=== PATIENT | female | born 1955 | race Caucasian/White ===

== ENCOUNTER 2020-02-17 14:41 | Outpatient (CLI) | payer BC, SELFPAY ==
--- NOTE | ~2020-02-17 | MM_ITS ---
EXAMINATION: MM screening kym BI w mary HISTORY: Screening TECHNIQUE: Craniocaudal and mediolateral oblique 3-D tomosynthesis images were obtained and synthetic 2-D images were generated. CAD analysis was submitted and interpreted. COMPARISON: Comparison to multiple prior studies sequentially, with oldest reviewed study dated 12/23. BREAST PARENCHYMAL COMPOSITION: There are scattered areas of fibroglandular density. FINDINGS: There is no evidence of suspicious mass, calcification, or architectural distortion to sugg est malignancy in either breast. There has been no suspicious interval change. IMPRESSION: 1. No mammographic evidence of malignancy. 2. Recommend routine screening mammography in one year. BI-RADS Category 1: Negative Reviewed, dictated and finalized at location D. TH AND PHYSICAL EDUCATION PROFESSOR
== END 2020-02-17 14:42 | disposition home or self-care (01) ==
LOC: ANHIMG 14:44
PROVIDERS: PCP Family Medicine Adolescent Medicine; Visit Provider Obstetrics & Gynecology
DX: Z12.31 Encounter for screening mammogram for malignant neoplasm of breast (principal)
CPT/HCPCS: 77063; 77067

== ENCOUNTER → 2020-02-17 15:20 | Outpatient (CLI) | payer BC, SELFPAY ==
--- NOTE | ~2020-02-17 | XR_ITS ---
EXAMINATION: XR knee RT min 4V DATE: 02/17/2020 16:02 INDICATION: Right knee osteoarthritis. TECHNIQUE: 4 views of right knee were obtained. COMPARISON: None. FINDINGS: There is varus angulation at the knee. No fracture. There is severe osteoarthritis of media l compartment, moderate osteoarthritis of patellofemoral compartment, and mild osteoarthritis of late ral compartment. There is a small knee joint effusion. IMPRESSION: 1. Severe right knee osteoarthritis. 2. Small right knee joint effusion. Reviewed, dictated and finalized at location A. NURSE
--- NOTE | ~2020-02-17 | XR_ITS ---
EXAMINATION: XR lumbar spine 2-3V DATE: 02/17/2020 16:02 INDICATION: Left-sided sciatica. TECHNIQUE: 3 views of lumbar spine were obtained. COMPARISON: CT abdomen and pelvis 10/14/2017, chest 2 views 10/19/2016 FINDINGS: S1 is a transitional segment. There is 8 degrees levocurvature of thoracolumbar spine. Ther e is 3 mm retrolisthesis of L2 on L3. Vertebral body heights are normal. There is mildly decreased di sc height at L1-L2, L2-L3, and L3-L4 and severely decreased disc height at L5-S1. There is severe fac et joint osteoarthritis in lower lumbar spine. Surgical clips in the right upper quadrant are likely from cholecystectomy. IMPRESSION: 1. Severe lumbar spondylosis. Reviewed, dictated and finalized at location A. TING DESIGNER
--- NOTE | ~2020-02-17 | XR_ITS ---
EXAMINATION: XR knee LT min 4V DATE: 02/17/2020 16:02 INDICATION: Left knee osteoarthritis. TECHNIQUE: 4 views of left knee were obtained. COMPARISON: Left knee radiographs 10/19/2016 FINDINGS: Bone alignment is normal. No fracture. There is severe osteoarthritis of lateral compartmen t, moderate osteoarthritis of patellofemoral compartment, and mild osteoarthritis of medial compartme nt. There is a small knee joint effusion. IMPRESSION: 1. Severe left knee osteoarthritis. 2. Small left knee joint effusion. Reviewed, dictated and finalized at location A. CREAM SERVER
== END ==
PROVIDERS: Visit Provider Family Medicine Adolescent Medicine
DX: M47.816 Spondylosis without myelopathy or radiculopathy, lumbar region (principal); M54.32 Sciatica, left side; M17.0 Bilateral primary osteoarthritis of knee; M25.462 Effusion, left knee; M25.461 Effusion, right knee
CPT/HCPCS: 72100; 73564

== ENCOUNTER 2020-03-07 10:01 | Outpatient (RCR) | payer BC, SELFPAY ==
--- NOTE | 2020-03-07 11:02 | PTOPEVAL ---
Thank you for referring Molly Calvin to [facility].? The patient is scheduled to be seen for therapy? __2__x/week for 12 visits. Please review, sign, date and return this plan of care SHANTA. I agree with and certify that the following plan of care is medically necessary. Referring Physician Date Admitting Provider: Attending Provider: Castillo Celaya MD Referring Provider: *PT Outpatient Evaluation Start: 03/07/20 10:02 Freq: Status: Active Protocol: Document 03/07/20 10:02 FANTA (Rec: 03/07/20 11:00 FANTA [id number]) Therapy Assessment Status Assessment Status Assessment Status Evaluation Evaluation Information Problem Diagnosis bilateral knee pain Onset 07/15/19 Subjective Information Pt. reports that she was Query Text:As Reported By Patient/ walking more frequently around Family July. she states that with the walking came an increase in pain. She describes pain on the front and outside of the left knee, as well as the front of the right knee. She reports that she can only stand for about 15 minutes before increased knee and leg pain. she reports that her goal is to improve her knee mobility and decrease her knee pain. Prior Level of Function Activity Level (Last 3 Months) Occupation retired Hand Dominance Left Activity of Daily Living Ability Independent Indoor/Home Mobility Independent Community Mobility Independent Stairs Ability Independent Functional Cognition (Planning, Shopping Independent , Taking Medications) Cooking Yes Cleaning Yes Laundry Yes Shopping Yes Driving Yes Pain Assessment Timing of Pain Assessment Timing of Pain Assessment Pre-Treatment Pain Scale Pain Scale Used Numeric (1 - 10) Self Report Pain Assessment Bilateral Knee(s) Reported Pain Level 1 Lowest Pain Intensity 1 Greatest Pain Intensity 7 Pain Aggravating Factors Stair Climbing,Walking,Weight Bearing/Standing Pain Score Pain Score 1: Self Report Interventions Used Interventions Used By Clinicians Activity or ADL's,Electrical Stimulation,Exercise,Heat Lower Extremity Range of Motion
== END 2020-04-13 14:57 | disposition home or self-care (01) ==
LOC: CHSPT 10:01
PROVIDERS: Visit Provider Orthopaedic Surgery
DX: M17.0 Bilateral primary osteoarthritis of knee (principal)
CPT/HCPCS: 97014; 97110; 97161; G0283

== ENCOUNTER 2020-04-18 13:51 | Outpatient (CLI) | payer BC, SELFPAY ==
[2020-04-18 14:29] LABS: Hematocrit 40.9 % (37.0-47.0); Hemoglobin 13.9 g/dL (12.0-15.0)
[2020-04-18 14:44] LABS: Albumin Level 3.9 g/dL (3.5-5.1); Estimated Glomerular Filt Rate > 60; Glucose 118 mg/dL (65-105)
[2020-04-18 14:45] LABS: Hemoglobin A1C 5.3 % (<5.7)
[2020-04-18 14:50] LABS: Urine Cotinine NEGATIVE
--- NOTE | 2020-04-18 15:12 | ECG_ITS ---
Measurements Intervals [place] Rate: 63 P: 63 MO: 145 QRS: 2 QRSD: 82 T: 7 QT: 408 QTc: 418 Interpretive Statements SINUS RHYTHM WITH SINUS ARRHYTHMIA NONSPECIFIC ST & T-WAVE ABNORMALITY- ANTEROLAT/INF LEADS BASELINE ARTIFACT- I, III, V4 BORDERLINE ECG Electronically Signed On 04-18-2020 15:51:43 WEIGHT TESTER by David Rios D.O.
== END 2020-04-18 13:52 | disposition home or self-care (01) ==
PROVIDERS: PCP Family Medicine Adolescent Medicine; Visit Provider Orthopaedic Surgery
DX: Z01.818 Encounter for other preprocedural examination (principal); M17.12 Unilateral primary osteoarthritis, left knee
CPT/HCPCS: 80307; 82040; 82565; 82947; 83036; 85014; 85018; 93005

== ENCOUNTER 2020-06-10 11:56 | Outpatient (CLI) | payer BC, SELFPAY ==
[2020-06-10 13:04] LABS: Basophils Absolute Auto 0.1 K/mm3 (0.0-0.1); Basophils Percent Auto 0.9 % (0.2-1.2); Eosinophils Absolute Auto 0.2 K/mm3 (0-0.3); Hemoglobin 13.8 g/dL (12.0-15.0); Immature Granulocyte Absolute 0.01 K/mm3 (0.00-0.031); Immature Granulocyte Percent A 0.1 % (0-0.5); Lymphocytes Absolute Auto 2.33 K/mm3 (0.9-3.2); Lymphocytes Percent Auto 31.3 % (18.3-44.2); Mean Corpuscular HGB Conc 34.5 g/dl (32-36); Mean Corpuscular Hemoglobin 31.3 pg (26-34); Mean Corpuscular Volume 90.7 fl (80-100); Mean Platelet Volume 9.5 fl (7.4-10.4); Monocytes Absolute Auto 0.7 K/mm3 (0.1-0.6); Monocytes Percent Auto 9.8 % (2.6-8.5); Neutrophils Absolute Auto 4.2 K/mm3 (1.3-6.7); Neutrophils Percent Auto 55.9 % (45.5-73.1); Platelet Count Result 219 k/mm3 (150-375); Red Blood Count 4.41 M/mm3 (4.2-5.4); Red Cell Distribution Width 12.2 % (11.5-14.5); White Blood Count 7.5 K/mm3 (4.5-10.0)
== END 2020-06-10 11:57 | disposition home or self-care (01) ==
LOC: ANHSURGERY 12:02
PROVIDERS: PCP Family Medicine Adolescent Medicine; Visit Provider Orthopaedic Surgery
DX: M17.12 Unilateral primary osteoarthritis, left knee (principal); Z01.818 Encounter for other preprocedural examination
CPT/HCPCS: 36415; 85025; 86850; 86900; 86901; 87081

== ENCOUNTER → 2020-06-11 01:42 | Outpatient (CLI) | payer BC, SELFPAY ==
[2020-06-11 19:42] LABS: SARS-CoV-2 RNA PCR Negative
== END ==
PROVIDERS: PCP Family Medicine Adolescent Medicine; Visit Provider Orthopaedic Surgery
DX: Z01.812 Encounter for preprocedural laboratory examination (principal); Z20.822 Contact with and (suspected) exposure to COVID-19
CPT/HCPCS: C9803; U0003; U0005

== ENCOUNTER 2020-06-14 01:38 | Day surgery (SDC) | payer BC, SELFPAY ==
[2020-06-10 12:07] VITALS: BMI 32.1
[2020-06-10 12:45] VITALS: BP 145/72; PULSE 68; RESP 16; TEMP 36.6; O2SAT 98
[2020-06-14] VITALS (15 sets, daily range): BP systolic 124–151; BP diastolic 55–78; PULSE 73–99; RESP 14–20; TEMP 36.3–36.8; O2SAT 94–100
--- NOTE | ~2020-06-14 | XR_ITS ---
EXAMINATION: XR knee LT 2V DATE: 06/14/2020 09:46 INDICATION: Total left knee arthroplasty. Postop. TECHNIQUE: 2 views of left knee were obtained. COMPARISON: Left knee radiographs 02/17/20 FINDINGS: There is a total left knee arthroplasty in near-anatomic alignment with patellar resurfacin g. No fracture. There is gas in the knee joint and soft tissues, consistent with recent surgery. IMPRESSION: 1. Total left knee arthroplasty in near-anatomic alignment. Reviewed, dictated and finalized at location A. OT KNITTER
[2020-06-14] MEDS: ACETAMINOPHEN 500 MG TABLET 1000 MG PO (06:34)
[2020-06-14] MEDS: LACTATED RINGERS 1,000 ML 30 ML IV CONT ×2 (06:40→09:32)
[2020-06-14] MEDS: TRANEXAMIC ACID 1,000MG/ISO100 1,000 MG/100 ML BAG 200 MG IVPB (06:44)
--- NOTE | 2020-06-14 07:03 | WPDANESEPPF ---
Anes - Initial Pre Proc Eval Procedure: Operation Date: 06/14/20 07:30 Proposed Procedures p Left Total Knee Arthroplasty - Castillo Celaya MD Date/Time: 06/14/20 07:03 Surgeon: Castillo Celaya MD Pre Op Diagnosis: Primary OA left Knee Patient Data Age: 65 Gender: F Height: 1.61 m Weight: 83.6 kg Last Vital Signs Temp 36.6 C 06/10/20 12:45 Pulse 68 06/10/20 12:45 Resp 16 06/10/20 12:45 BP 145/72 H 06/10/20 12:45 Pulse Ox 98 06/10/20 12:45 Allergies Allergy/AdvReac Type Severity Reaction Status Date / Time caffeine AdvReac Unknown PANIC Verified 06/14/20 06:21 ATTACKS hydrocodone AdvReac Unknown Nausea Verified 06/14/20 06:21 Home Medications Medication Instructions Recorded Confirmed Type tramadol 50 mg tablet 50 mg PO Q6H PRN 01/26/20 06/14/20 History alprazolam 0.25 mg tablet 0.25 mg PO PRN PRN 02/11/20 06/14/20 History simvastatin 40 mg tablet 40 mg PO HS 02/11/20 06/14/20 History nitrofurantoin macrocrystal 50 mg 50 mg PO PRN PRN 06/08/20 06/10/20 History capsule risedronate 150 mg tablet 150 mg PO MONTHLY 06/08/20 06/14/20 History Lactobacillus acidophilus 10,000 mmu cells PO BID 06/10/20 06/14/20 History [Probiotic] ascorbic acid (vitamin C) [Vitamin 1 g PO DAILY 06/10/20 06/14/20 History C] calcium carbonate [Calcium 600] 600 mg PO BID 06/10/20 06/14/20 History calcium carbonate [Tums] 200 mg PO PRN PRN 06/10/20 06/14/20 History cholecalciferol (vitamin D3) 125 mcg PO DAILY 06/10/20 06/14/20 History coQ10 (ubiquinol) 100 mg PO DAILY 06/10/20 06/14/20 History cranberry 1,000 mg PO DAILY 06/10/20 06/14/20 History docusate sodium [Stool Softener] 100 mg PO DAILY 06/10/20 06/14/20 History famotidine 20 mg PO DAILY 06/10/20 06/14/20 History garlic extract 500 mg PO BID 06/10/20 06/14/20 History multivitamin,bu-[id number]-mgqpcpnv 1 tablet PO DAILY 06/10/20 06/14/20 History [Complete Multivitamin] naproxen sodium 220 mg PO BID 06/10/20 06/14/20 History omega-3 fatty acids-vitamin E 1 cap PO DAILY 06/10/20 06/14/20 History [Fish Oil] Patient hx anesthesia problems: none Family hx anesthesia problems: none [facility] Past Medical History Medical History (Updated 06/14/20 @ 07:06 by Kristopher Villafuerte MD) Bilateral knee pain Bunion of left foot (~2002) Bunion, left foot (~1995) Bunion, left foot (~1999) Bunion, left foot (~2005) Chronic GERD Hyperlipidemia Obesity Osteoarthritis Primary osteoarthritis of knees, bilateral Surgical History Surgical History H/O: hysterectomy (~1994) History of carpal tunnel release (~2018) History of cholecystectomy (~2017) History of left knee surgery (~2016) History of right knee surgery (~2012) Family History Family History Father Diabetes mellitus Heart disease Mother Heart disease Other Family history of cardiovascular disease Family history of kidney disease Family history of malignant neoplasm Hypertension Social History Social History Smoking status: Never smoker Additional smoking assessment comments: DENIES ANY FORM OF TOBACCO USE Alcohol intake: never Living arrangements: with family Spiritual care concerns: No Anes - Eval Final PreProcedure Day of Procedure 06/14/20 07:03 Patient weight: obese Heart: regular rate and rhythm Lungs: clear to auscultation and normal air movement Airway: Mallampati scale class II Neurological: alert and oriented Last oral intake: >/= 8 hours ASA classification: II Emergent: no Anesthetic plan: proceed Anesthesia type and monitoring: general LMA Informed Consent: The patient's anesthetic plan and its attendant risks and benefits were discussed with the patient/family/POA. Questions were solicited and answers provided to the satisfaction of the patient/family/POA.
--- NOTE | 2020-06-14 07:07 | WPDANESPNB ---
Anes - Peripheral Nerve Block Date/Time: 06/14/20 07:07 I have discussed with the patient/family/POA the placement of a peripheral nerve block for post-operative pain management, including associated risks, benefits, complications, and side effects. Alternative methods of post-operative analgesia were detailed. Questions were solicited and answers provided to the satisfaction of the patient/family/POA. Time-Out: A pre-procedural Time-Out was completed immediately before starting the procedure and confirmed: Patient Identification, Site, Procedure, Patient Position and the Availability of Requisite Equipment. Clinical Indications: Acute post-operative pain management requested by the operative surgeon. Nerve Block Insertion Note Anes-nerve block: adductor canal left Patient position: supine Skin prep: chlorhexidine Needle: 22 gauge, stimulating, insulated echogenic needle. Needle length: 80 mm Technique: ultrasound Technique comment: in plane Injectate: bupivacaine 0.5% with epi 5 mcg/ml (30cc) Observations: tolerated well Complications: none Procedure start time:: 720 Procedure end time:: 725
--- NOTE | 2020-06-14 07:18 | WPDHPUPDATE1 ---
History and Physical Update Update Date/Time: 06/14/20 07:18 History and Physical has been reviewed, including an updated exam of the patient. There are NO changes in the patient's condition. Risks, benefits, and alternatives have been discussed and questions answered. Patient agrees to proceed with procedure.
[2020-06-14] MEDS: ceFAZolin 2 GM/D5W 50 ML 2 GM/50 ML BAG IVPB (07:28)
--- NOTE | 2020-06-14 09:25 | PM.PROC ---
Procedure Note - Detailed Date of procedure: 06/14/20 Pre-op diagnosis: Primary OA left Knee Post-op diagnosis: same Procedure performed: Total knee arthroplasty, left Description of procedure: Bone quality was fair. Minimal lateral release required. 9mm distal cut due to contracture and remaining cartilage on the medial femur. 3 degree rotation matched the AP axis and gap balancing. PCL minimally released off the tibia. Implants: Estephania Triathlon size 4 cemented femur, size 4 cemented low-profile tibia, 11 mm CR polyethylene insert, 32 mm asymmetric all poly patellar component. Anesthesia: GETA and regional (subsartorial nerve block) Surgeon: Castillo Celaya MD Mandate Retail Service Merchandiser: Chichi Blackmon PA-C Estimated blood loss (mL): 200 Tourniquet time (min): 16 Drains: No Complications: None Condition: stable Disposition: PACU Findings: Physician pediatric medical assistant, Chichi Blackmon PA-C, required for surgery; including patient positioning, draping, tissue retraction, maintaining instrument position, cement removal, wound closure, and dressing placement. OPERATIVE DETAILS: The patient was given a nerve block preoperatively, and then brought to the operating room. A general anesthetic was administered. The leg was prepped and draped in the usual sterile fashion. The limb was elevated and the tourniquet inflated to 300 mmHg during initial exposure, and cementation. A longitudinal incision was created along the medial border of the patella and patellar tendon, and a high mid-vastus approach to the knee was performed. No medial release was taken. The knee was then flexed. The osteophytes were carefully removed. The intramedullary guide was placed in the femoral canal. The distal femoral resection was then taken with the oscillating saw. The collateral ligaments were carefully protected. The tibia was carefully exposed. The jig was applied, and the proximal tibia was resected according to preoperative plan. The pain really anesthetic mixture was injected into the periarticular tissues. The knee was balanced in extension, and appropriate releases were taken where needed. The anterior cruciate ligament and meniscal remnants were removed. The posterior cruciate ligament was preserved. The patella was measured. Patellar resection was carried out with the oscillating saw. The lug holes drilled. The femur was sized and rotation assessed using a combination of gap balancing, posterior referencing, and the AP axis. The 4 in 1 cutting block was used to finish the femoral cuts after equal gaps were assured. The lug holes were drilled. The osteophytes were carefully removed from the back of the knee. The knee was copiously irrigated with antibiotic solution periodically throughout the procedure. The spacer block was used to confirm equal flexion and extension gaps. Further releases were performed as needed. The tibia was sized and broached. The bony surfaces were prepared for cementing with pulsatile lavage. The real tibial component and femoral components were cemented into position. Excess cement was carefully removed. The polyethylene insert was placed. The patella component was subsequently cemented. Patellar tracking was carefully assessed. No additional releases were required. The wound was closed with #1 Vicryl suture, #2 Quill suture, 1-Xgwluj-iuk suture, and 2-0 Strata-fix suture followed by Steri-Strips. A sterile bulky dressing was applied. Meticulous hemostasis was maintained throughout the procedure. There were no complications. The patient was extubated and brought to the recovery room in stable condition after the application of sterile dressing with Johann bandage.
[2020-06-14] MEDS: fentaNYL CITRATE INJ (*CRX) 100 MCG/2 ML VIAL 25 MCG IV PUSH ×4 (10:04→10:30)
--- NOTE | 2020-06-14 11:39 | ADMGEN ---
This patient, Molly Calvin, was admitted to 2 Medical Room 259-01. Patient/family oriented to hospital policies and general routines including ID bracelet, bed and alarms, visiting hours, pain management, procedures, bathroom and other care routines, personal items, smoking policy, room service/diet, and visiting hours. Information on how to activate the Rapid Response Team has been discussed. Patient/Family are encouraged to report perceived risks to care and to ask questions if they do not understand what they are told or what they should do.
[2020-06-14] MEDS: oxyCODONE HCL (*CRX) 5 MG TAB IR PO (12:13)
[2020-06-14] MEDS: traMADol HCL (*CRX) 50 MG TABLET PO ×2 (14:37→21:14)
[2020-06-14] MEDS: ALPRAZolam (*CRX) 0.25 MG TABLET PO (14:37)
[2020-06-14] MEDS: NAPROXEN SODIUM 220 MG TABLET PO (16:27)
[2020-06-14] MEDS: CALCIUM CARBONATE (OSCAL) 500 MG TABLET PO (16:28)
[2020-06-14] MEDS: DOCUSATE SODIUM 100 MG CAPSULE PO (16:28)
[2020-06-14] MEDS: ACIDOPHILUS/BULGARICUS CHEWABLE TABLET 1 TABLET PO (16:28)
[2020-06-14] MEDS: ASPIRIN 81 MG ENTERIC TABLET PO (16:28)
[2020-06-14] MEDS: SIMVASTATIN 20 MG TABLET 40 MG PO (21:08)
[2020-06-14] MEDS: SENNOSIDES 8.6 MG TABLET 17.2 MG PO (21:08)
[2020-06-15 00:37] VITALS: BP 144/61; PULSE 83; RESP 20; TEMP 36.3; O2SAT 98
[2020-06-15] MEDS: oxyCODONE HCL (*CRX) 5 MG TAB IR PO ×3 (00:56→08:40)
[2020-06-15] MEDS: traMADol HCL (*CRX) 50 MG TABLET PO ×2 (04:03→11:21)
[2020-06-15 04:40] VITALS: BP 144/64; PULSE 84; RESP 20; TEMP 36.1; O2SAT 97
[2020-06-15 05:33] LABS: Basophils Percent Auto 0.4 % (0.2-1.2); Eosinophils Absolute Auto 0.1 K/mm3 (0-0.3); Eosinophils Percent Auto 0.8 % (0-4.4); Hematocrit 32.3 % (37.0-47.0); Hemoglobin 11.1 g/dL (12.0-15.0); Immature Granulocyte Absolute 0.03 K/mm3 (0.00-0.031); Immature Granulocyte Percent A 0.3 % (0-0.5); Lymphocytes Absolute Auto 1.37 K/mm3 (0.9-3.2); Lymphocytes Percent Auto 13.7 % (18.3-44.2); Mean Corpuscular HGB Conc 34.4 g/dl (32-36); Mean Corpuscular Hemoglobin 31.4 pg (26-34); Mean Corpuscular Volume 91.2 fl (80-100); Mean Platelet Volume 9.9 fl (7.4-10.4); Monocytes Absolute Auto 1.1 K/mm3 (0.1-0.6); Monocytes Percent Auto 10.6 % (2.6-8.5); Neutrophils Absolute Auto 7.4 K/mm3 (1.3-6.7); Neutrophils Percent Auto 74.2 % (45.5-73.1); Platelet Count Result 178 k/mm3 (150-375); Red Blood Count 3.54 M/mm3 (4.2-5.4); Red Cell Distribution Width 12.3 % (11.5-14.5)
[2020-06-15 05:49] LABS: Anion Gap 4 mmol/L (8-16); Blood Urea Nitrogen 15 mg/dL (7-17); Carbon Dioxide 29 mmol/L (22-30); Chloride 104 mmol/L (98-107); Estimated CRCL calculation 83 ml/min; Estimated Glomerular Filt Rate > 60; Glucose 123 mg/dL (65-105); Potassium 3.5 mmol/L (3.4-5.0); Sodium 137 mmol/L (137-145)
[2020-06-15 08:40] VITALS: BP 151/67; PULSE 75; RESP 16; TEMP 36.8; O2SAT 96
[2020-06-15] MEDS: THERAPEUTIC MULTIVITAMINS/MINERALS TAB (*BKC) 1 TABLET PO (08:41)
[2020-06-15] MEDS: OMEGA 3 POLYUNSAT FATTY ACIDS 1 GM CAP PO (08:41)
[2020-06-15] MEDS: NAPROXEN SODIUM 220 MG TABLET PO (08:41)
[2020-06-15] MEDS: CHOLECALCIFEROL 1,000 UNITS TABLET 5000 UNITS PO (08:41)
[2020-06-15] MEDS: DOCUSATE SODIUM 100 MG CAPSULE PO (08:41)
[2020-06-15] MEDS: ASCORBIC ACID 500 MG TABLET 1000 MG PO (08:41)
[2020-06-15] MEDS: ACIDOPHILUS/BULGARICUS CHEWABLE TABLET 1 TABLET PO (08:41)
[2020-06-15] MEDS: FAMOTIDINE 20 MG TABLET PO (08:41)
[2020-06-15] MEDS: ALPRAZolam (*CRX) 0.25 MG TABLET PO (08:41)
[2020-06-15] MEDS: ASPIRIN 81 MG ENTERIC TABLET PO (08:42)
[2020-06-15] MEDS: CALCIUM CARBONATE (OSCAL) 500 MG TABLET PO (08:42)
--- NOTE | 2020-06-15 11:56 | PM.DS ---
DS: Admitting Diagnosis Admitting Diagnosis Admitting Diagnosis: OA knee Left DS: Discharge Diagnosis Discharge Diagnosis (1) Status post left knee replacement: Code(s): Z96.652 - Presence of left artificial knee joint Status: Acute Assessment and Plan: Patient is postop day 1 left total knee arthroplasty. Patient is progressing well. She has had PT/OT. Pain is controlled with oral pain medications. I reviewed post operative expectations and exercises. Reviewed wound care postoperatively. Patient shows good understanding. Follow up appointments already made. DS: Summary Hospital Course Reason for hospitalization: Left Total knee arthroplasty Hospital Course: Patient tolerated procedure well. Has had initial PT/OT. No complications. Pain well managed with oral medications. Status at Discharge Functional status at discharge: uses cane/walker Overall status at discharge: patient is progressing back to baseline Time Spent with Patient Time attestation: Total time spent providing and/or coordinating discharge services: Exam Narrative: Exam Narrative: Normal weight Female. Resting comfortably in bed. No acute distress. A&O x3. Wearing compression socks bilaterally. Dressing intact with no drainage. Moderate swelling. No ecchymosis. No erythema. No hematoma. Good early range of motion. Calf nontender. Neurologic status intact. No varicosities. Distal pulses palpable. DS: Data Data Completed and Pending Labs on day of discharge: Labs from last 24 hours 06/15/20 06/15/20 05:18 05:18 WBC 10.0 RBC 3.54 L Hgb 11.1 L Hct 32.3 L MCV 91.2 MCH 31.4 MCHC 34.4 RDW 12.3 Plt Count 178 MPV 9.9 Immature Gran % (Auto) 0.3 Neut % (Auto) 74.2 H Lymph % (Auto) 13.7 L [place] % (Auto) 10.6 H Eos % (Auto) 0.8 Baso % (Auto) 0.4 Lymph # (Auto) 1.37 [place] # (Auto) 1.1 H Eos # (Auto) 0.1 Baso # (Auto) 0.0 Abs Immat Gran (auto) 0.03 Absolute Neuts (auto) 7.4 H Absolute Nucleated RBC 0.0 Nucleated RBC % 0.0 Sodium 137 Potassium 3.5 Chloride 104 Carbon Dioxide 29 Anion Gap 4 L BUN 15 Creatinine 0.60 L Estim Creat Clear Calc 83 Estimated GFR > 60 Glucose 123 H Calcium 8.0 L Discharge Plan Discharge Patient Disposition: Home, Self-Care Discharge Instructions: See instruction sheet Patient Instructions: Pain Management (DC), Joint Replacement Surgery (DC), Knee Replacement (DC) Follow-up/Referrals: Chichi Blackmon PA [Physician Accounts Adjustable Clerk] - Discharge Medications: New aspirin 81 mg Tablet,Delayed Release (Dr/Ec) 81 mg PO BID Qty: 28 RF: 0 oxycodone-acetaminophen 5-325 mg tablet 1 - 2 tablet PO Q4-6H MDD 6 PRN (Reason: pain) Qty: 30 RF: 0 Continued simvastatin 40 mg tablet 40 mg PO HS RF: 0 alprazolam 0.25 mg tablet 0.25 mg PO PRN PRN (Reason: Anxiety) RF: 0 nitrofurantoin macrocrystal 50 mg capsule 50 mg PO PRN PRN (Reason: UTIS) RF: 0 risedronate 150 mg tablet 150 mg PO MONTHLY RF: 0 tramadol 50 mg tablet 50 mg PO Q6H PRN (Reason: Pain) RF: 0 naproxen sodium 220 mg Capsule 220 mg PO BID RF: 0 famotidine 20 mg Tablet 20 mg PO DAILY RF: 0 calcium carbonate [Tums] 200 mg calcium (500 mg) Tablet,Chewable 200 mg PO PRN PRN (Reason: Heartburn) RF: 0 docusate sodium [Stool Softener] 100 mg Capsule 100 mg PO DAILY RF: 0 Probiotic 10 billion cell Capsule 10,000 mmu cells PO BID RF: 0 garlic extract 500 mg Capsule 500 mg PO BID RF: 0 ascorbic acid (vitamin C) [Vitamin C] 1,000 mg Tablet 1 g PO DAILY RF: 0 calcium carbonate [Calcium 600] 600 mg calcium (1,500 mg) Tablet 600 mg PO BID RF: 0 cranberry 1,000 mg Capsule 1,000 mg PO DAILY RF: 0 multivitamin,uw-wdqw-bmbkvcrs Tablet 1 tablet PO DAILY RF: 0 omega-3 fatty acids-vitamin E 1,000 mg Capsule 1 cap PO DAILY RF: 0 coQ10 (ubiquinol) 100 mg Capsule 100 mg PO
--- NOTE | 2020-06-15 12:38 | WPDANESPN ---
Anes - Prog Note Post-Op Date/Time: 06/15/20 12:38 Cardiovascular status: normal Respiratory status: normal Airway patency: baseline Mental status: baseline Post-Op hydration status: normal Vital Signs: Last Vital Signs Temp 36.8 C 06/15/20 08:40 Pulse 75 06/15/20 08:40 Resp 16 06/15/20 08:40 BP 151/67 H 06/15/20 08:40 Pulse Ox 96 06/15/20 08:40 Pain Score (VAS): 4 I/O: Intake & Output 06/14/20 06/15/20 06/15/20 23:59 07:59 15:59 Intake Total 590 440 Output Total 1300 1000 Balance -710 -560 Laboratory Tests 06/15/20 05:18 06/15/20 05:18 06/15/20 06/15/20 05:18 05:18 WBC 10.0 RBC 3.54 L Hgb 11.1 L Hct 32.3 L MCV 91.2 MCH 31.4 MCHC 34.4 RDW 12.3 Plt Count 178 MPV 9.9 Immature Gran % (Auto) 0.3 Neut % (Auto) 74.2 H Lymph % (Auto) 13.7 L [place] % (Auto) 10.6 H Eos % (Auto) 0.8 Baso % (Auto) 0.4 Lymph # (Auto) 1.37 [place] # (Auto) 1.1 H Eos # (Auto) 0.1 Baso # (Auto) 0.0 Abs Immat Gran (auto) 0.03 Absolute Neuts (auto) 7.4 H Absolute Nucleated RBC 0.0 Nucleated RBC % 0.0 Sodium 137 Potassium 3.5 Chloride 104 Carbon Dioxide 29 Anion Gap 4 L BUN 15 Creatinine 0.60 L Estim Creat Clear Calc 83 Estimated GFR > 60 Glucose 123 H Calcium 8.0 L Post-procedural complaints: none Patient Feedback: Patient satisfied with anesthetic care.
== END 2020-06-15 14:30 | disposition home or self-care (01) ==
LOC: ANHSURGERY 06:00 → ANH2MED 10:51
PROVIDERS: PCP Family Medicine Adolescent Medicine; Visit Provider Orthopaedic Surgery
PROC: (CPT 27447; principal; 2020-06-14 07:30)
DX: M17.12 Unilateral primary osteoarthritis, left knee (principal); G89.18 Other acute postprocedural pain; E78.5 Hyperlipidemia, unspecified; K21.9 Gastro-esophageal reflux disease without esophagitis; E66.9 Obesity, unspecified; Z68.32 Body mass index [BMI] 32.0-32.9, adult
CPT/HCPCS: 27447; 64447; 36415; 73560; 80048; 85025; 97110; 97116; 97161; 97165; 97530; 97535; A9270; C1713; C1776; J0131; J0171; J0690; J1100; J1885; J2250; J2405; J2704; J2795; J3010; J7120

== ENCOUNTER 2020-06-28 12:59 | Outpatient (RCR) | payer BC, SELFPAY ==
--- NOTE | 2020-06-28 13:55 | PTOPEVAL ---
Thank you for referring Molly Calvin to [facility].? The patient is scheduled to be seen for therapy? __3__x/week for 12 visits. Please review, sign, date and return this plan of care SHANTA. I agree with and certify that the following plan of care is medically necessary. Referring Physician Date Admitting Provider: Attending Provider: SABINA Carranza Referring Provider: *PT Outpatient Evaluation Start: 06/28/20 13:08 Freq: Status: Active Protocol: Document 06/28/20 13:08 FANTA (Rec: 06/28/20 13:54 FANTA [id number]) Therapy Assessment Status Assessment Status Assessment Status Evaluation Outpatient Past Medical History Neurological History Hx Neurological Disorders No Significant History Cardiovascular History Hx Hypercholesterolemia Yes Hx Other Cardiac Disorders Yes: WALKED 1 MILE DAILY/BIKED 1.5 MILES DAILY FOR MANY YEARS Respiratory History Hx Respiratory Disorders No Significant History Gastrointestinal History Hx Cholecystectomy Yes Hx Gastroesophageal Reflux Disease Yes Genitourinary History Hx Urinary Tract Infection Yes: FREQUENT UTI'S TAKES ANTIBIOTIC PRN Musculoskeletal History Hx Arthritis Yes: GENERALIZED Hx Crutches or Walker Use Yes: CRUTCHES Query Text:If Yes, Enter Crutches, Walker, or Both in the Comment Hx Orthopedic Surgery Yes: RT CUBITAL TUNNEL RELEASE ,BILAT KNEE SCOPE,BILAT BUNIONECTOMY Hx Other Musculoskeletal Disorders Yes: OA LT KNEE Hematological History Hx Hematological Disorders No Significant History Endocrine History Hx Endocrine Disorders No Significant History HEENT History Hx Other HEENT Disorders Yes: READING GLASSES Integumentary History Hx Shingles Yes: ~2018 Reproductive History Hx Hysterectomy Yes Hx Tubal Ligation Yes Hx Other Reproductive Disorders Yes: LT OVARIAN CYST REMOVED Psychosocial History Hx Anxiety Yes: PANIC ATTACKS Pain History History of Any Previous or Ongoing No Significant History Instance of Pain Anesthesia History Hx Post-Op Nausea/Vomiting Yes Other History Hx Other Medical Conditions Yes: COVID 19 POSITIVE 2019 COUGH,DIARRHEA,LOSS TASTE AND SMELL Evaluation Information Problem Diagnosis left TKA Onset 06/14/20 Subjective Information Pt. reports she underwent left Query Text:As Reported By Patient/ TKA on June 14. She Family reports that she continues to have pain since
--- NOTE | 2020-07-19 11:47 | PTOPEVAL ---
Thank you for referring Molly Calvin to [facility].? The patient is scheduled to be seen for therapy? ____x/week for ___ weeks. Please review, sign, date and return this plan of care SHANTA. I agree with and certify that the following plan of care is medically necessary. Referring Physician Date Admitting Provider: Attending Provider: SABINA Carranza Referring Provider: *PT Outpatient Evaluation Start: 06/28/20 13:08 Freq: Status: Active Protocol: Document 07/19/20 10:28 ACR (Rec: 07/19/20 11:46 ACR [id number]) Therapy Assessment Status Assessment Status Assessment Status Evaluation Outpatient Past Medical History Neurological History Hx Neurological Disorders No Significant History Cardiovascular History Hx Hypercholesterolemia Yes Hx Other Cardiac Disorders Yes: WALKED 1 MILE DAILY/BIKED 1.5 MILES DAILY FOR MANY YEARS Respiratory History Hx Respiratory Disorders No Significant History Gastrointestinal History Hx Cholecystectomy Yes Hx Gastroesophageal Reflux Disease Yes Genitourinary History Hx Urinary Tract Infection Yes: FREQUENT UTI'S TAKES ANTIBIOTIC PRN Musculoskeletal History Hx Arthritis Yes: GENERALIZED Hx Crutches or Walker Use Yes: CRUTCHES Query Text:If Yes, Enter Crutches, Walker, or Both in the Comment Hx Orthopedic Surgery Yes: RT CUBITAL TUNNEL RELEASE ,BILAT KNEE SCOPE,BILAT BUNIONECTOMY Hx Other Musculoskeletal Disorders Yes: OA LT KNEE Hematological History Hx Hematological Disorders No Significant History Endocrine History Hx Endocrine Disorders No Significant History HEENT History Hx Other HEENT Disorders Yes: READING GLASSES Integumentary History Hx Shingles Yes: ~2018 Reproductive History Hx Hysterectomy Yes Hx Tubal Ligation Yes Hx Other Reproductive Disorders Yes: LT OVARIAN CYST REMOVED Psychosocial History Hx Anxiety Yes: PANIC ATTACKS Pain History History of Any Previous or Ongoing No Significant History Instance of Pain Anesthesia History Hx Post-Op Nausea/Vomiting Yes Other History Hx Other Medical Conditions Yes: COVID 19 POSITIVE 2019 COUGH,DIARRHEA,LOSS TASTE AND SMELL Evaluation Information Problem Diagnosis L TKA Onset 06/14/20 Subjective Information Patient ambulates into clinic Query Text:As Reported By Patient/ with a [facility] after taking 2 Family weeks off due to her surgeon thinking she may have an
--- NOTE | 2020-08-04 15:53 | PTOPEVAL ---
Thank you for referring Molly Calvin to [facility].? The patient is scheduled to be seen for therapy? __1__x/week for __3_ weeks. Please review, sign, date and return this plan of care SHANTA. I agree with and certify that the following plan of care is medically necessary. Referring Physician Date Admitting Provider: Attending Provider: SABINA Carranza Referring Provider: *PT Outpatient Evaluation Start: 06/28/20 13:08 Freq: Status: Active Protocol: Document 08/04/20 10:25 FANTA (Rec: 08/04/20 15:50 FANTA [id number]) Therapy Assessment Status Assessment Status Assessment Status Progress Outpatient Past Medical History Neurological History Hx Neurological Disorders No Significant History Cardiovascular History Hx Hypercholesterolemia Yes Hx Other Cardiac Disorders Yes: WALKED 1 MILE DAILY/BIKED 1.5 MILES DAILY FOR MANY YEARS Respiratory History Hx Respiratory Disorders No Significant History Gastrointestinal History Hx Cholecystectomy Yes Hx Gastroesophageal Reflux Disease Yes Genitourinary History Hx Urinary Tract Infection Yes: FREQUENT UTI'S TAKES ANTIBIOTIC PRN Musculoskeletal History Hx Arthritis Yes: GENERALIZED Hx Crutches or Walker Use Yes: CRUTCHES Query Text:If Yes, Enter Crutches, Walker, or Both in the Comment Hx Orthopedic Surgery Yes: RT CUBITAL TUNNEL RELEASE ,BILAT KNEE SCOPE,BILAT BUNIONECTOMY Hx Other Musculoskeletal Disorders Yes: OA LT KNEE Hematological History Hx Hematological Disorders No Significant History Endocrine History Hx Endocrine Disorders No Significant History HEENT History Hx Other HEENT Disorders Yes: READING GLASSES Integumentary History Hx Shingles Yes: ~2018 Reproductive History Hx Hysterectomy Yes Hx Tubal Ligation Yes Hx Other Reproductive Disorders Yes: LT OVARIAN CYST REMOVED Psychosocial History Hx Anxiety Yes: PANIC ATTACKS Pain History History of Any Previous or Ongoing No Significant History Instance of Pain Anesthesia History Hx Post-Op Nausea/Vomiting Yes Other History Hx Other Medical Conditions Yes: COVID 19 POSITIVE 2019 COUGH,DIARRHEA,LOSS TASTE AND SMELL Evaluation Information Problem Diagnosis s/p left TKA Subjective Information Pt. reports she visited with Query Text:As Reported By Patient/ her doctor who was happy with Family her progress, but states that he would like to see more bend
--- NOTE | 2020-08-24 16:11 | PCPTNOTE ---
On 08/24/20, the student, [Sunitha Carreno, SPT], provided care and completed [employer] documentation on this patient. I have reviewed the student's documentation and agree with the findings.
--- NOTE | 2020-08-31 17:15 | PTOPEVAL ---
Thank you for referring Molly Calvin to [facility].? The patient is scheduled to be seen for therapy? ____x/week for ___ weeks. Please review, sign, date and return this plan of care SHANTA. I agree with and certify that the following plan of care is medically necessary. Referring Physician Date Admitting Provider: Attending Provider: SABINA Carranza Referring Provider: *PT Outpatient Evaluation Start: 06/28/20 13:08 Freq: Status: Active Protocol: Document 08/31/20 15:00 MS (Rec: 08/31/20 16:18 MS [id number]) Therapy Assessment Status Assessment Status Assessment Status Re-evaluation Outpatient Past Medical History Neurological History Hx Neurological Disorders No Significant History Cardiovascular History Hx Hypercholesterolemia Yes Hx Other Cardiac Disorders Yes: WALKED 1 MILE DAILY/BIKED 1.5 MILES DAILY FOR MANY YEARS Respiratory History Hx Respiratory Disorders No Significant History Gastrointestinal History Hx Cholecystectomy Yes Hx Gastroesophageal Reflux Disease Yes Genitourinary History Hx Urinary Tract Infection Yes: FREQUENT UTI'S TAKES ANTIBIOTIC PRN Musculoskeletal History Hx Arthritis Yes: GENERALIZED Hx Crutches or Walker Use Yes: CRUTCHES Query Text:If Yes, Enter Crutches, Walker, or Both in the Comment Hx Orthopedic Surgery Yes: RT CUBITAL TUNNEL RELEASE ,BILAT KNEE SCOPE,BILAT BUNIONECTOMY Hx Other Musculoskeletal Disorders Yes: OA LT KNEE Hematological History Hx Hematological Disorders No Significant History Endocrine History Hx Endocrine Disorders No Significant History HEENT History Hx Other HEENT Disorders Yes: READING GLASSES Integumentary History Hx Shingles Yes: ~2018 Reproductive History Hx Hysterectomy Yes Hx Tubal Ligation Yes Hx Other Reproductive Disorders Yes: LT OVARIAN CYST REMOVED Psychosocial History Hx Anxiety Yes: PANIC ATTACKS Pain History History of Any Previous or Ongoing No Significant History Instance of Pain Anesthesia History Hx Post-Op Nausea/Vomiting Yes Other History Hx Other Medical Conditions Yes: COVID 19 POSITIVE 2019 COUGH,DIARRHEA,LOSS TASTE AND SMELL Evaluation Information Problem Diagnosis s/p left TKA Onset 06/14/20 Subjective Information Pt. reports no pain at the Query Text:As Reported By Patient/ beginning of therapy session, Family but pain increases to 3/10 with lunges and 5/10
--- NOTE | 2020-08-31 17:30 | PCPTNOTE ---
On 08/31/20, the student, [Sunitha Carreno, SPT], provided care and completed [employer] documentation on this patient. I have reviewed the student's documentation and agree with the findings.
== END 2020-10-05 15:45 | disposition home or self-care (01) ==
LOC: CHSPT 12:59
PROVIDERS: Visit Provider Physician Assistant Surgical
DX: Z47.1 Aftercare following joint replacement surgery (principal); Z96.652 Presence of left artificial knee joint
CPT/HCPCS: 97016; 97110; 97112; 97116; 97161; 97530

== ENCOUNTER 2021-02-20 14:32 | Outpatient (CLI) | payer BC, SELFPAY ==
--- NOTE | ~2021-02-20 | MM_ITS ---
EXAMINATION: MM screening kym BI w mary HISTORY: Screening mammogram TECHNIQUE: Craniocaudal and mediolateral oblique 3-D tomosynthesis images were obtained and synthetic 2-D images were generated. CAD analysis was submitted and interpreted. COMPARISON: 02/2020, 01/09/2019, 01/07/2018 bilateral screening mammogram examinations BREAST PARENCHYMAL COMPOSITION: There are scattered areas of fibroglandular density. FINDINGS: There is no evidence of suspicious mass, calcification, or architectural distortion to sugg est malignancy in either breast. There has been no suspicious interval change. IMPRESSION: 1. No mammographic evidence of malignancy. 2. Recommend routine screening mammography in one year. BI-RADS Category 1: Negative Reviewed, dictated and finalized at location A. NT BABYSITTER
== END 2021-02-20 14:33 | disposition home or self-care (01) ==
LOC: ANHIMG 14:33
PROVIDERS: PCP Family Medicine Adolescent Medicine; Visit Provider Obstetrics & Gynecology
DX: Z12.31 Encounter for screening mammogram for malignant neoplasm of breast (principal)
CPT/HCPCS: 77063; 77067

== ENCOUNTER 2022-02-22 13:15 | Outpatient (CLI) | payer BC, SELFPAY ==
--- NOTE | ~2022-02-22 | MM_ITS ---
EXAMINATION: MM screening kym BI w mary HISTORY: Screening mammogram TECHNIQUE: Craniocaudal and mediolateral oblique 3-D tomosynthesis images were obtained and synthetic 2-D images were generated. CAD analysis was submitted and interpreted. COMPARISON: 02/20/2021, 02/2020, 01/09/2019 bilateral screening mammogram examinations BREAST PARENCHYMAL COMPOSITION: There are scattered areas of fibroglandular density. FINDINGS: There is no evidence of suspicious mass, calcification, or architectural distortion to sugg est malignancy in either breast. There has been no suspicious interval change. IMPRESSION: 1. No mammographic evidence of malignancy. 2. Recommend routine screening mammography in one year. BI-RADS Category 1: Negative Reviewed, dictated and finalized at location A. CAL EQUIPMENT SALES
== END 2022-02-22 13:16 | disposition home or self-care (01) ==
LOC: CHSIMG 13:17
PROVIDERS: PCP Family Medicine Adolescent Medicine; Visit Provider Obstetrics & Gynecology
DX: Z12.31 Encounter for screening mammogram for malignant neoplasm of breast (principal)
CPT/HCPCS: 77063; 77067

== ENCOUNTER 2023-02-25 12:53 | Outpatient (CLI) | payer BC, SELFPAY ==
--- NOTE | ~2023-02-25 | DEXA_ITS ---
Bone Density Report Name: ASHUTOSH BAKER Age: 68 Sex: Female Ethnicity: White Date of : 1955 Indication: postmenopausal; screening for osteoporosis; parental hip fracture; height loss; hysterectomy; Referring Provider: RADHA BASS Study: Bone densitometry was performed. Exam Date: February 25, 2023 Accession number: [id number] Bone Density: Region BMD T-score Z-score Classification AP Spine(L2, L3, L4) 1.136 0.5 2.5 Normal Femoral Neck (Left) 0.733 -1.0 0.6 Normal Total Hip (Left) 0.844 -0.8 0.5 Normal Femoral Neck (Right) 0.765 -0.8 0.9 Normal Total Hip (Right) 0.920 -0.2 1.2 Normal Femoral Neck Mean 0.749 -0.9 0.7 Normal Total Hip Mean 0.882 -0.5 0.8 Normal World Health Organization criteria for BMD impression classify patients as: Normal (T-score at or above -1.0), Osteopenia (T-score between -1.0 and -2.5), or Osteoporosis (T-score at or below -2.5). 10-year Fracture Risk: FRAX not reported because: All T-scores for Spine Total, Hip Total, Femoral Neck at or above -1.0 Clinical Information Provided by Patient: Parent has had a hip fracture Has used the following medications: Vitamin D, Calcium Has the following medical conditions: Hysterectomy Patient maximum height was 64.5 Menopause Age: 39 No regular weight bearing exercise Onset of menses at age 13 Number of children 3 Impression: The patient has normal bone mass. The patient has risk factors, including: parental hip fracture. Discussion: BONE DENSITY IS ABOVE THE MINIMUM DESIRABLE LEVEL AT ALL SKELETAL SITES TESTED. This patient?s bone mineral density is above the minimum desirable level (T-score -1.0 or better) at all sites measured. The patient should follow a healthful lifestyle (good nutrition with adequate calcium and vitamin D, and appropriate weight-bearing exercise). Follow-Up: Consider repeating this study in 5 years or sooner if there is some new clinical indication. Reported by: Dr. Jl English on 02/25/2023 1:28:00 PM. Reviewed, dictated and finalized at location AReuben CASTELLANOS
--- NOTE | ~2023-02-25 | MM_ITS ---
EXAMINATION: MM screening kym BI w mary HISTORY: Screening mammogram, family history of breast cancer in her mother. TECHNIQUE: Craniocaudal and mediolateral oblique 3-D tomosynthesis images were obtained and synthetic 2-D images were generated. CAD analysis was submitted and interpreted. COMPARISON: 02/22/2022, 02/20/2021, 02/16/2022 BREAST PARENCHYMAL COMPOSITION: There are scattered areas of fibroglandular density. FINDINGS: RIGHT BREAST: There are grouped calcifications in the posterior third of the upper outer quadrant of the breast 10 cm from the nipple. LEFT BREAST: No suspicious mass, calcification, or architectural distortion are identified to suggest malignancy. There has been no suspicious interval change. IMPRESSION: 1. Grouped calcifications in the right breast. 2. Magnification views are recommended. BI-RADS Category 0: Incomplete: Needs additional imaging evaluation. Reviewed, dictated and finalized at location A. TING INSTRUCTOR
== END 2023-02-25 12:54 | disposition home or self-care (01) ==
LOC: CHSIMG 12:54
PROVIDERS: PCP Family Medicine Adolescent Medicine; Visit Provider Obstetrics & Gynecology
DX: Z12.31 Encounter for screening mammogram for malignant neoplasm of breast (principal); Z78.0 Asymptomatic menopausal state; R92.8 Other abnormal and inconclusive findings on diagnostic imaging of breast
CPT/HCPCS: 77063; 77067; 77080

== ENCOUNTER 2023-03-18 08:55 | Outpatient (CLI) | payer BC, SELFPAY ==
--- NOTE | ~2023-03-18 | MM_ITS ---
EXAMINATION: MM diagnostic kym RT w mary HISTORY: Right breast calcifications on screening mammogram TECHNIQUE: Magnification views of the right breast were performed. CAD analysis was submitted and int erpreted. COMPARISON: 02/25/2023, 02/22/2022, 02/20/2021 FINDINGS: There are grouped round calcifications in the posterior third of the upper outer quadrant o f the breast at the 11:00 location, 12 cm from the nipple. No suspicious mass or architectural distor tion are identified. IMPRESSION: 1. Grouped calcifications in the upper outer quadrant of the right breast with benign morphology. 2. Recommend routine screening mammography in one year. BI-RADS Category 2: Benign finding(s). Reviewed, dictated and finalized at location A. ARY CLERK
== END 2023-03-18 08:56 | disposition home or self-care (01) ==
LOC: CHSIMG 08:57
PROVIDERS: PCP Family Medicine Adolescent Medicine; Visit Provider Obstetrics & Gynecology
DX: R92.8 Other abnormal and inconclusive findings on diagnostic imaging of breast (principal)
CPT/HCPCS: 77061; 77065; G0279

== ENCOUNTER 2023-09-12 08:18 | Outpatient (CLI) | payer BC, SELFPAY ==
--- NOTE | ~2023-09-12 | MR_ITS ---
EXAMINATION: MR lumbar spine wo con DATE: 09/12/2023 08:59 INDICATION: Neurogenic claudication of both legs. Bilateral leg pain. TECHNIQUE: Magnetic resonance imaging (MRI) of the lumbar spine was performed without intravenous con trast. Sequences included sagittal T2-weighted FSE, sagittal T2-weighted FS FSE, sagittal T1-weighted FSE, and axial T2-weighted FSE. COMPARISON: Lumbar spine radiographs 02/17/2020 FINDINGS: There is 13 degrees dextroscoliosis of lumbar spine. S1 is a transitional segment. There is 3 mm retrolisthesis of L1 on L2 and L2 on L3 and 4 mm anterolisthesis of L4 on L5. Vertebral body he ights are normal. There is mildly decreased disc height at L1-L2, severely decreased disc height at L 2-L3, and moderately decreased disc height at L3-L4 and L4-L5. There is severely decreased disc heigh t at L5-S1 with interbody fusion. The distal spinal cord signal intensity is normal. The conus medull chante is at L1. There are Tarlov cysts in the sacrum. The following disc levels are specifically discu ssed: L1-L2: The disc is bulging and has an annular fissure. There is moderate bilateral facet joint osteoa rthritis. There is mild bilateral neural foraminal stenosis. There is mild central canal stenosis. L2-L3: The disc is bulging and has an annular fissure. There is severe bilateral facet joint osteoart hritis. There is mild bilateral neural foraminal stenosis. There is mild central canal stenosis. L3-L4: The disc is bulging and has an annular fissure. There is severe bilateral facet joint osteoart hritis. There is mild bilateral neural foraminal stenosis. There is mild central canal stenosis. L4-L5: The disc is bulging and has an annular fissure. There is severe bilateral facet joint osteoart hritis. There is mild right and moderate left neural foraminal stenosis. There is no central canal st enosis. L5-S1: The disc is bulging. There is mild bilateral facet joint osteoarthritis. There is mild bilater al neural foraminal stenosis. There is mild central canal stenosis. IMPRESSION: 1. Severe lumbar spondylosis. 2. Lumbar dextroscoliosis. Reviewed, dictated and finalized at location A.
== END 2023-09-12 08:19 | disposition home or self-care (01) ==
LOC: CHSIMG 08:19
PROVIDERS: PCP Family Medicine Adolescent Medicine; Visit Provider Family Medicine Adolescent Medicine
DX: R29.818 Other symptoms and signs involving the nervous system (principal); M43.06 Spondylolysis, lumbar region; M41.86 Other forms of scoliosis, lumbar region
CPT/HCPCS: 72148

== ENCOUNTER 2024-03-20 13:19 | Outpatient (CLI) | payer BC, SELFPAY ==
--- NOTE | ~2024-03-20 | MM_ITS ---
EXAMINATION: MM screening kym BI w mary HISTORY: Screening TECHNIQUE: Craniocaudal and mediolateral oblique 3-D tomosynthesis images were obtained and synthetic 2-D images were generated. CAD analysis was submitted and interpreted. COMPARISON: Comparison to multiple prior studies sequentially, with oldest reviewed study dated 01/09. BREAST PARENCHYMAL COMPOSITION: Not dense: There are scattered areas of fibroglandular density. FINDINGS: There is a cluster of punctate monomorphic calcifications in the upper outer quadrant of th e right breast, posterior third. These calcifications are not significantly changed compared with 07/2022 or 02/25/2023. There is no evidence of suspicious mass, calcification, or architectural disto rtion to suggest malignancy in the left breast. There has been no suspicious interval change. IMPRESSION: 1. Stable benign-appearing right breast calcifications. No new masses, calcifications or architectura l distortion to suggest malignancy. 2. Routine yearly screening mammogram and regular clinical breast examination are recommended. BI-RADS Category 2: Benign finding(s). Reviewed, dictated and finalized at location B. IFIED ALCOHOL COUNSELOR IMPRESSION: 1. Stable benign-appearing right breast calcifications. No new masses, calcific ations or architectural distortion to suggest malignancy. 2. Routine yearly screening mammogram and regular clinical breast examination a re recommended. BI-RADS Category 2: Benign finding(s).
== END 2024-03-20 13:20 | disposition home or self-care (01) ==
LOC: CHSIMG 13:20
PROVIDERS: PCP Family Medicine Adolescent Medicine; Visit Provider Obstetrics & Gynecology
DX: Z12.31 Encounter for screening mammogram for malignant neoplasm of breast (principal)
CPT/HCPCS: 77063; 77067

== ENCOUNTER 2024-10-06 08:43 | Outpatient (CLI) | payer BC, SELFPAY ==
--- NOTE | ~2024-10-06 | CT_ITS ---
CT of the Abdomen and Pelvis: Indication: Microscopic hematuria Technique: 2.5 mm axial scans were obtained through the abdomen and pelvis prior to and following in travenous administration of 130 cc of Omnipaque 350. Dose reduction technique was used on this scan b y utilizing automated exposure control and iterative reconstruction technique. The dose-length produc t (DLP) was 1833.20 mGy-cm. Findings: Scans through the lung bases are unremarkable. The liver, spleen, pancreas, adrenals and kidneys are within normal limits. 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 Cholecystectomy clips are present. There are atheroscleroti c calcifications of the aorta. No lymphadenopathy. No bowel obstruction or bowel wall thickening. There is no evidence to suggest acute appendicitis. Images through the pelvis were performed. Tiny bubbles of air present in the urinary bladder. No adne xal mass seen. No ascites. Impression: No etiology for hematuria identified. Partial duplication right renal collecting system. Tiny bubbles of air in urinary bladder. Correlate for recent instrumentation. Reviewed, dictated and finalized at location . Impression: No etiology for hematuria identified. Partial duplication right renal collectin g system. Tiny bubbles of air in urinary bladder. Correlate for recent instrumentation.
[2024-10-06 09:26] LABS: Estimated Glomerular Filt Rate > 60
== END 2024-10-06 08:44 | disposition home or self-care (01) ==
LOC: CHSIMG 08:46
PROVIDERS: PCP Family Medicine Adolescent Medicine; Visit Provider Physician Assistant Medical
DX: R31.29 Other microscopic hematuria (principal)
CPT/HCPCS: 74178; Q9967

== ENCOUNTER 2025-02-05 09:57 | Outpatient (CLI) | payer BC, SELFPAY ==
--- OUTSIDE RECORDS SUMMARY | 2025-02-05 10:20 | XMS_ITS | Clinical Summary ---
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 Active lisinopril (PRINIVIL, ZESTRIL) 20 MG Tablet Take 20 mg by mouth every morning. Active simvastatin (ZOCOR) 40 MG Tablet Take 40 mg by mouth every evening. Active Risedronate Sodium 150 MG Tablet Take 1 Tablet by mouth every 28 days. Active traMADol (ULTRAM) 50 MG Tablet Take 50 mg by mouth every 6 hours as needed. Active nitrofurantoin (MACRODANTIN) 50 MG CapsuleIndicati ons:Urinary Tract Infection Take 50 mg by mouth as needed. Indications: Urinary Tract Infection Active cephalexin (KEFLEX) 500 MG Tablet Take 1 Tablet by mouth as needed. Active Encounters Date Type Department Care Team Description 12/28/2024 9:51 AM CDT Anesthesia Event [facility] [address]iop [address] [place] [address] Jakub Greene MD 12/28/2024 9:40 AM CDT - 12/28/2024 10:00 AM CDT Surgery [facility] [address] [address] [place] [address] Brandi Bah MD PhD CATARACT EXTRACTION WITH INTRAOCULAR LENS PLACEMENT, RIGHT EYE 12/28/2024 8:20 AM CDT - 12/28/2024 10:12 AM CDT Hospital Encounter [facility] Preop/Pacu II [address] [place] [address] Brandi Bah MD PhD Discharge Disposition: Discharged to home or Selfcare 12/28/2024 Travel 12/22/2024 Travel 11/30/2024 12:06 PM CDT Anesthesia Event [facility] [address]iop [address] [place] [address] David Soriano APRN, SNOUT PULLER 11/30/2024 12:00 PM CDT - 11/30/2024 12:20 PM CDT Surgery [facility] [address] [place] [address] Brandi Bah MD PhD CATARACT EXTRACTION WITH INTRAOCULAR LENS PLACEMENT, LEFT EYE 11/30/2024 10:41 AM CDT - 11/30/2024 12:27 PM CDT Hospital Encounter [facility] Preop/Pacu II [address] [place] [address] Brandi Bah MD PhD Discharge Disposition: Discharged to home or Selfcare 11/30/2024 Travel 11/20/2024 Travel from Last 3 Months Family History Medical History Relation Name Comments Diabetes Father Heart Disease Father Heart Surgery Father Hypertension Father ambutation Father lower legs Cancer Mother breast Congestive Heart Failure Mother Heart Disease Mother Relation Name Status Comments Father Mother Social History Tobacco Use Types Packs/Day Years Used Date Smoking Tobacco: Never Smokeless Tobacco: Never Tobacco Cessation:Counseling Given: Not Answered Alcohol Use Standard Drinks/Week Comments Never 0 (1 standard drink = 0.6 oz pur e alcohol) Comments Unknown Sex and Gender Information Value Date Recorded Sex Assigned at Not on file Legal Sex Female 12:14 PM CDT Gender Identity Not on file Sexual Orientation Not on file Last Filed Vital Signs Vital Sign Reading Time Taken Comments Blood Pressure 128/68 12/28/2024 10:07 AM CDT Pulse 62 12/28/2024 10:07 AM CDT Temperature 36.4 C (97.6 F) 12/28/2024 10:07 AM CDT Respiratory Rate 16 12/28/2024 10:07 AM CDT Oxygen Saturation 95% 12/28/2024 10:07 AM CDT Inhaled Oxygen Concentration - - Weight 79.4 kg (175 lb) 12/28/2024 8:55 AM CDT Height 160 cm (5' 3) 12/28/2024 8:55 AM CDT Body Mass Index 31 12/28/2024 8:55 AM CDT Plan of Treatment Not on file Medical Devices Implanted Type Area Powder Blender And Pourer Device Identifier Shelf Expiration Date Model / Serial / Lot Tecnis 1-Piece Iol With Tecnis Simplicity Delivery System Implanted:Qty: 1 on 11/30/2024 by Brandi Bah MD PhD at [facility] Left: Eye [employer] 10/02/2027 [id number] / [id number] / [id number] Technis 1-Piec Iol Implanted:Qty: 1 on 12/28/2024 by Brandi Bah MD PhD at [facility] Right: Eye 10/23/2027 [id number] / [id number] / [id number] Procedures Procedure Name Priority Date/Time Associated Diagnosis Comments EXTCAP RMVL INSERT INTRAOC PROSTH W/ECP 12/28/2024 9:50 AM CDT VISUALLY SIGNIFICANT CATARACT, RIGHT EYE Special Needs Hx of Htn 5ft 3in 175lb EXTCAP INSERT INTROC PROSTH W/ECP 12/28/2024 9:50 AM CDT VISUALLY SIGNIFICANT CATARACT, RIGHT EYE Special Needs Hx of Htn 5ft 3in 175lb CO XCAPSL CTRC RMVL INSJ IO LENS PROSTH W/O ECP 12/28/2024 9:50 AM CDT VISUALLY SIGNIFICANT CATARACT, RIGHT EYE Special Needs Hx of Htn 5ft 3in 175lb REMV CATARACT INTRACAP,INSERT LENS 12/28/2024 9:50 AM CDT VISUALLY SIGNIFICANT CATARACT, RIGHT EYE Special Needs Hx of Htn 5ft 3in 175lb CO XCAPSL CTRC RMVL INSJ IO LENS PROSTH CPLX WO ECP 12/28/2024 9:50 AM CDT VISUALLY SIGNIFICANT CATARACT, RIGHT EYE Special Needs Hx of Htn 5ft 3in 175lb EXTCAP RMVL INSERT INTRAOC PROSTH W/ECP 11/30/2024 12:03 PM CDT VISUALLY SIGNIFICANT CATARACT, LEFT EYE Special Needs Allergy: Caffeine Hx: HTN 5' 3 170# EXTCAP INSERT INTROC PROSTH W/ECP 11/30/2024 12:03 PM CDT VISUALLY SIGNIFICANT CATARACT, LEFT EYE Special Needs Allergy: Caffeine Hx: HTN 5' 3 170# CO XCAPSL CTRC RMVL INSJ IO LENS PROSTH W/O ECP 11/30/2024 12:03 PM CDT VISUALLY SIGNIFICANT CATARACT, LEFT EYE Special Needs Allergy: Caffeine Hx: HTN 5' 3 170# REMV CATARACT INTRACAP,INSERT LENS 11/30/2024 12:03 PM CDT VISUALLY SIGNIFICANT CATARACT, LEFT EYE Special Needs Allergy: Caffeine Hx: HTN 5' 3 170# CO XCAPSL CTRC RMVL INSJ IO LENS PROSTH CPLX WO ECP 11/30/2024 12:03 PM CDT VISUALLY SIGNIFICANT CATARACT, LEFT EYE Special Needs Allergy: Caffeine Hx: HTN 5' 3 170# from Last 3 Months Insurance MEDICARE Member Subscriber Plan / Payer (Ef fective 2021-Present) Name:Molly Baker Member ID:[id number] Relation to Subscriber:Self Name:Molly Baker Subscriber ID:[id number] Payer ID:[id number] Group ID:Not on file Type:Not on file Address: [address] Care Teams Reefer Truck Driver Relationship Specialty Start Date End Date Pradeep Harding MD [id number] [place] [address] PCP - General Family Medicine 12/28/24
--- NOTE | 2025-02-05 10:51 | ECG_ITS ---
Test Date: 2025-02-05 11:06:21 Measurements Intervals Jackson Rate: 68 P: 48 CT: 171 QRS: -5 QRSD: 85 T: 5 QT: 412 QTc: 439 Interpretive Statements SINUS RHYTHM BORDERLINE R WAVE PROGRESSION, ANTERIOR LEADS BORDERLINE T WAVE ABNORMALITY- ANT/INF LEADS BASELINE ARTIFACT- I, II, III, AVR, AVL, AVF, V4-V6 BORDERLINE ECG No previous ECG available for comparison Electronically Signed On 02-05-2025 11:29:59 CDT by David Rios D.O.
[2025-02-05 11:13] LABS: Hematocrit 38.3 % (37.0-47.0); Hemoglobin 12.6 g/dL (12.0-15.0); Immature Granulocyte Percent A 0.6 % (0-0.5); Lymphocytes Absolute Auto 1.80 K/mm3 (0.9-3.2); Mean Corpuscular HGB Conc 32.9 g/dl (32-36); Mean Corpuscular Hemoglobin 32.5 pg (26-34); Mean Corpuscular Volume 98.7 fl (80-100); Nucleated Red Blood Cells Absolute Auto 0.000 K/mm3 (0.0-0.012); Nucleated Red Blood Cells Perc 0.0 % (0.0-0.2); Platelet Count Result 180 k/mm3 (150-375); Red Blood Count 3.88 M/mm3 (4.2-5.4); White Blood Count 6.2 K/mm3 (4.5-10.0)
[2025-02-05 11:29] LABS: Alanine Aminotransferase 30 U/L (6-35); Albumin Level 4.2 g/dL (3.5-5.1); Alkaline Phosphatase 67 U/L (38-126); Anion Gap 6 mmol/L (4-12); Aspartate Amino Transferase 32 U/L (14-36); Bilirubin,Total 0.4 mg/dL (0.2-1.3); Blood Urea Nitrogen 12 mg/dL (7-17); Calcium 8.9 mg/dL (8.4-10.2); Carbon Dioxide 28 mmol/L (22-30); Chloride 105 mmol/L (98-107); Estimated Glomerular Filt Rate > 60; Glucose 96 mg/dL (65-110); Potassium 3.9 mmol/L (3.4-5.0); Sodium 139 mmol/L (137-145); Total Protein 7.2 g/dL (6.3-8.2)
[2025-02-05 11:39] LABS: INR 1.0; Partial Thromboplastin Time 27.2 Seconds (22.3-36.8); Prothrombin Time 12.9 Seconds (11.1-14.7)
== END 2025-02-05 09:58 | disposition home or self-care (01) ==
LOC: ANHSURGERY 10:02
PROVIDERS: PCP Family Medicine Adolescent Medicine; Visit Provider Urology
DX: Z01.818 Encounter for other preprocedural examination (principal); R94.31 Abnormal electrocardiogram [ECG] [EKG]; I12.9 Hypertensive chronic kidney disease with stage 1 through stage 4 chronic kidney disease, or unspecified chronic kidney disease; N81.4 Uterovaginal prolapse, unspecified; N39.3 Stress incontinence (female) (male); E78.5 Hyperlipidemia, unspecified
CPT/HCPCS: 36415; 80053; 85025; 85610; 85730; 86850; 86900; 86901; 93005

== ENCOUNTER 2025-02-15 01:03 | Day surgery (SDC) | payer BC, SELFPAY ==
[2025-02-05 10:10] VITALS: BP 132/57; PULSE 97; RESP 16; TEMP 36.7; O2SAT 97; BMI 32.2
--- NOTE | 2025-02-05 10:29 | PC.NURSE ---
[facility] has started construction of its new state of the art ER which will open Spring 2026. With this, we anticipate parking may be a challenge for some our surgical patients and families. Parking spaces are limited but are available for all Surgical, obstetrics, and ER patients sharing this lot. If you arrive and find you are having a hard time finding a parking space, please note that we understand the challenges, please drive around the hospital and park near Hospital Entrance 1. When you enter this entrance, you can ask a volunteer to direct or take you back to the surgical waiting area to check in. We appreciate everyone?s understanding of these expected challenges while we build for your future. Report to the Outpatient Waiting Room, entrance under the green pavilion located off [facility] [address], at time __10:00am on date __02/15/25 . Planned Procedure Time: ___12:00pm .? Time changes happen often and if your time is changed the preop area will call you the afternoon before. - You and your visitor will be asked to self-screen and do not enter if you have any COVID symptoms. Please call surgeon if you need to reschedule. - A mask is optional within the hospital at this time. Patients may have clear liquids (water, carbonated beverages, clear teas, apple juice) until 3 hours prior to surgery with a maximum of 20 ounces. - No food from midnight until time of surgery and no smoking, or chewing tobacco (or any form of nicotine). No chewing gum, candy or mints. (0900am) Take only the following medications with a SIP of water on the morning of surgery: ___Alprazolam If needed and Tramadol if needed DO NOT STOP ANY OF YOUR OTHER PRESCRIPTION MEDICATIONS PRIOR TO SURGERY EXCEPT THE FOLLOWING Hold all vitamins and supplements for 3 days per anesthesiologist. Date of last dose is 02/11/25 Medications to discontinue per physician NONE Date to take last dose___NONE Please no make-up, nail citizen of the [place], hairspray, perfume, deodorant, or body powder the day of surgery.? No jewelry (including any body piercings) or valuables the day of surgery, leave them at home.? Please take a shower or bath the night before, or the morning of, surgery with an antibacterial soap. GOLD DIAL ? Wear comfortable, loose fitting clothing.? - Jewelry must be removed prior to entering the operating room.? Rings and piercings that are not removed may be cut off. - The hospital will not accept responsibility for valuables.? - Please leave all valuables, including medications, at home the day of surgery. If you are going home after surgery, a licensed van cdl driver must drive you home.? - NO public transportation without another adult if you receive anesthesia. - We recommend that an adult stay with you for 24 hours following discharge. - We also recommend that you do not drive, make important decision, drink alcoholic beverages, or take any drugs that were not prescribed by your health care provider for at least 24 hours after your discharge time. Follow any additional instructions given to you from your surgeon. Telephone instructions given to ___Patient and asked if any additional questions and then verbalized understanding. Patient advised to call surgeon office or pre surgery nurse liaison [phone] if any additional questions.
--- NOTE | 2025-02-10 07:23 | PM.IMHP ---
H&P: HPI History of Present Illness Date/Time: 02/10/25 07:23 Chief Complaint: Uterine prolapse bulging Narrative: Very pleasant 70-year-old female admitted for robotic total vaginal supracervical hysterectomy and bilateral salpingo-oophorectomy along with sacral colpopexy. She has uterine prolapse and as discussed sacral colpopexy with Dr. Bauer risks and benefits of the procedure reviewed including not exclusive of , aspiration pneumonia, bleeding, transfusion, perforation injury to bowel, bladder, ureters, or other internal organs with need for open laparotomy. She received the ACOG handout entitled hysterectomy as well as the de Vonnie handout. She had all questions answered. She asked to proceed Review of Systems Review of Systems: All systems reviewed & are unremarkable except as noted in HPI and below PMFSH Past Medical History Medical History Pure hypercholesterolemia, unspecified Gallstones Orthopedic aftercare Normal colonoscopy 12/01 Repeat 12/06 Chronic GERD Obesity Bunion, left foot (~2005) Bunion of left foot (~2002) Bunion, left foot (~1999) Bunion, left foot (~1995) Surgical History Surgical History History of vein stripping 2012 History of left knee replacement 07/03 History of carpal tunnel release (~2018) History of cholecystectomy (~2017) 2017 H/O: hysterectomy (~1994) Family History Family History Father Diabetes mellitus Heart disease Hypertension Mother Heart disease Sibling Hypertension Other Family history of cardiovascular disease Family history of kidney disease Family history of malignant neoplasm Social History Social History Smoking status: Never smoker Second hand tobacco smoke exposure: Yes Additional smoking assessment comments: DENIES ANY FORM OF TOBACCO USE Alcohol intake: never Substance use: never Substance use type: does not use Living arrangements: with family Additional living arrangements comments: Occupation/Education: retired Gender identity (if verbalized by the patient): Female Sexual Orientation (if Verbalized by the Patient): Straight or Heterosexual Spiritual care concerns: No Agree to blood products: Yes Meds Home Medications and Allergies Home Medications ?Medication ?Instructions ?Recorded ?Confirmed ?Type risedronate 150 mg tablet 150 mg PO MONTHLY 06/08/20 02/05/25 History Lactobacillus acidophilus 10 10,000 mmu cells PO BID 06/10/20 02/05/25 History billion cell capsule (Probiotic) ascorbic acid (vitamin C) 1,000 mg 1 g PO DAILY 06/10/20 02/05/25 History tablet (Vitamin C) calcium carbonate (Calcium 600) 600 mg PO BID 06/10/20 02/05/25 History cholecalciferol (vitamin D3) 125 125 mcg PO DAILY 06/10/20 02/05/25 History mcg (5,000 unit) tablet coQ10 (ubiquinol) 100 mg capsule 100 mg PO DAILY 06/10/20 02/05/25 History cranberry fruit 1,000 mg capsule 1,000 mg PO DAILY 06/10/20 02/05/25 History docusate sodium 100 mg capsule 100 mg PO DAILY 06/10/20 02/05/25 History (Stool Softener) garlic extract 500 mg capsule 500 mg PO BID 06/10/20 02/05/25 History multivitamin,th-ekkq-ieywyili 1 tablet PO DAILY 06/10/20 02/05/25 History omega-3 fatty acids-vitamin E 1 cap PO DAILY 06/10/20 02/05/25 History 1,000 mg capsule alprazolam 0.25 mg tablet 0.25 mg PO BID PRN Anxiety 06/21/21 02/05/25 History lisinopril 20 mg tablet See Rx Instructions .Route 07/07/24 02/05/25 Rx .COMPLEX #90 tabs simvastatin 40 mg tablet 40 mg PO HS #90 tabs 07/07/24 02/05/25 Rx nitrofurantoin macrocrystal 50 mg See Rx Instructions .Route 07/09/24 02/05/25 Rx capsule .COMPLEX #90 caps tramadol 50 mg tablet 50 mg PO Q6H PRN Pain #100 tabs 02/02/25 02/05/25 Rx Allergies Allergy/AdvReac Type Severity Reaction Status Date / Time diclofenac AdvReac Severe Abdominal Verified 02/05/25 10:09 pain caffeine AdvReac Unknown PANIC Verified 02/05/25 10:09 ATTACKS hydrocodone AdvReac Unknown Nausea Verified 02/05/25 10:09 Exam Const: General: cooperative, healthy appearing and comfortable Nutritional Appearance: average body habitus Orientation/consciousness: oriented to person, oriented to place and oriented to time HENMT: Head: normal to inspection Resp: Effort & Inspection: normal respiratory effort Cardio: Rate: regular rate Rhythm: regular rhythm Heart sounds: S1 normal heart sound present and S2 normal heart sound present GI: Inspection: normal to inspection : External Female Exam: normal external appearance Speculum Exam - Vagina: normal appearance of the vagina Speculum Exam - Cervix: normal appearance of the cervix (Second 3rd degree prolapse) Bimanual exam- vagina & uterus: non-tender Bimanual Exam- Adnexa, other: normal adnexae Assessment and Plan Assessment and plan (1) Uterine prolapse: Code(s): N81.4 - Uterovaginal prolapse, unspecified Status: Acute Plan Will proceed with robotic supracervical hysterectomy and bilateral salpingo-oophorectomy. Dr. Bauer will proceed with sacral colpopexy
--- NOTE | 2025-02-12 09:00 | PM.IMHP ---
H&P: HPI History of Present Illness Date/Time: 02/12/25 09:00 Chief Complaint: POP/MODESTO Narrative: Molly Calvin is a 69-year-old female who presents for evaluation of pelvic organ prolapse. She has not undergone a hysterectomy. Her medical library assistant is Dr. Josemanuel Azevedo. She has undergone urodynamic testing, which documents stress urinary incontinence. She reports symptoms of leakage when coughing and sneezing, as well as urgency-related leakage. She has experienced pelvic organ prolapse for an extended period. She is scheduled for surgery. [facility] Past Medical History Medical History Pure hypercholesterolemia, unspecified Gallstones Orthopedic aftercare Normal colonoscopy 12/01 Repeat 12/06 Chronic GERD Obesity Bunion, left foot (~2005) Bunion of left foot (~2002) Bunion, left foot (~1999) Bunion, left foot (~1995) Surgical History Surgical History History of vein stripping 2012 History of left knee replacement 07/03 History of carpal tunnel release (~2018) History of cholecystectomy (~2017) 2017 H/O: hysterectomy (~1994) Family History Family History Father Diabetes mellitus Heart disease Hypertension Mother Heart disease Sibling Hypertension Other Family history of cardiovascular disease Family history of kidney disease Family history of malignant neoplasm Social History Social History Smoking status: Never smoker Second hand tobacco smoke exposure: Yes Additional smoking assessment comments: DENIES ANY FORM OF TOBACCO USE Alcohol intake: never Substance use: never Substance use type: does not use Living arrangements: with family Additional living arrangements comments: Occupation/Education: retired Gender identity (if verbalized by the patient): Female Sexual Orientation (if Verbalized by the Patient): Straight or Heterosexual Spiritual care concerns: No Agree to blood products: Yes Meds Home Medications and Allergies Home Medications ?Medication ?Instructions ?Recorded ?Confirmed ?Type risedronate 150 mg tablet 150 mg PO MONTHLY 06/08/20 02/05/25 History Lactobacillus acidophilus 10 10,000 mmu cells PO BID 06/10/20 02/05/25 History billion cell capsule (Probiotic) ascorbic acid (vitamin C) 1,000 mg 1 g PO DAILY 06/10/20 02/05/25 History tablet (Vitamin C) calcium carbonate (Calcium 600) 600 mg PO BID 06/10/20 02/05/25 History cholecalciferol (vitamin D3) 125 125 mcg PO DAILY 06/10/20 02/05/25 History mcg (5,000 unit) tablet coQ10 (ubiquinol) 100 mg capsule 100 mg PO DAILY 06/10/20 02/05/25 History cranberry fruit 1,000 mg capsule 1,000 mg PO DAILY 06/10/20 02/05/25 History docusate sodium 100 mg capsule 100 mg PO DAILY 06/10/20 02/05/25 History (Stool Softener) garlic extract 500 mg capsule 500 mg PO BID 06/10/20 02/05/25 History multivitamin,ae-fqhm-ogskfffr 1 tablet PO DAILY 06/10/20 02/05/25 History omega-3 fatty acids-vitamin E 1 cap PO DAILY 06/10/20 02/05/25 History 1,000 mg capsule alprazolam 0.25 mg tablet 0.25 mg PO BID PRN Anxiety 06/21/21 02/05/25 History lisinopril 20 mg tablet See Rx Instructions .Route 07/07/24 02/05/25 Rx .COMPLEX #90 tabs simvastatin 40 mg tablet 40 mg PO HS #90 tabs 07/07/24 02/05/25 Rx nitrofurantoin macrocrystal 50 mg See Rx Instructions .Route 07/09/24 02/05/25 Rx capsule .COMPLEX #90 caps tramadol 50 mg tablet 50 mg PO Q6H PRN Pain #100 tabs 02/02/25 02/05/25 Rx Allergies Allergy/AdvReac Type Severity Reaction Status Date / Time diclofenac AdvReac Severe Abdominal Verified 02/05/25 10:09 pain caffeine AdvReac Unknown PANIC Verified 02/05/25 10:09 ATTACKS hydrocodone AdvReac Unknown Nausea Verified 02/05/25 10:09 Exam Narrative: The physical exam findings are as follows: Note:? - Cystocele beyond the introitus at approximately +3 to +4. - Minimal urethral mobility. - Atrophic vaginal tissue. - Loss of uterine support. - Gully at -1. Assessment and Plan Assessment and plan (1) MODESTO (stress urinary incontinence, female): Code(s): N39.3 - Stress incontinence (female) (male) Status: Acute Plan - We discussed the treatment options for pelvic organ prolapse, including observation, pelvic floor muscle exercises, physical therapy, pessary usage, and surgery, as well as each approach's specific risks and benefits. She opts for a sacral colpopexy. We specifically discussed the utilization of robotic sacral colpopexy. ? - She understands the risks of bleeding, infection, recurrence or prolapse, mesh exposure, damage to the bowel or urinary tract, open conversion, de ying urinary urgency, urinary retention, post-operative stress urinary incontinence, dyspareunia, back pain, diskitis, and risks of anesthesia. In addition, she was provided written information on the etiology and treatment of pelvic organ prolapse. ? - After an extensive discussion, she agrees to proceed with surgery. - We discussed the treatment options for stress urinary incontinence, including pelvic floor muscle rehabilitation, transurethral bulking agents, and mid-urethral sling procedures. She is most interested in the latter. ? - We discussed the alternatives, benefits, and risks. We discussed specifically the risks of bleeding, infection, failure to correct incontinence, damage to the urinary tract, vaginal mesh extrusion, urinary tract mesh erosion, obstructive voiding requiring a secondary procedure, de ying or worsening irritative voiding symptoms, post-operative hip and leg pain, and the risk of anesthesia. We also discussed that treatment of stress incontinence is unlikely to improve overactive bladder symptoms if present. She was also counseled on post-operative activity restrictions. She wishes to proceed.
[2025-02-15] VITALS (11 sets, daily range): BP systolic 107–144; BP diastolic 52–88; PULSE 55–97; RESP 12–18; TEMP 35.7–37.1; O2SAT 94–100
--- NOTE | 2025-02-15 06:31 | WPDHPUPDATE1 ---
History and Physical Update Update Date/Time: 02/15/25 06:31 History and Physical has been reviewed, including an updated exam of the patient. There are NO changes in the patient's condition. Risks, benefits, and alternatives have been discussed and questions answered. Patient agrees to proceed with procedure.
--- NOTE | 2025-02-15 07:19 | WPDHPUPDATE1 ---
History and Physical Update Update Date/Time: 02/15/25 07:19 History and Physical has been reviewed, including an updated exam of the patient. There are NO changes in the patient's condition. Risks, benefits, and alternatives have been discussed and questions answered. Patient agrees to proceed with procedure.
--- NOTE | 2025-02-15 10:49 | WPDHPUPDATE1 ---
History and Physical Update Update Date/Time: 02/15/25 10:49 History and Physical has been reviewed, including an updated exam of the patient. There are NO changes in the patient's condition. Risks, benefits, and alternatives have been discussed and questions answered. Patient agrees to proceed with procedure. patient opts for retain ovary
[2025-02-15] MEDS: ACETAMINOPHEN 500 MG TABLET 1000 MG PO (10:50)
[2025-02-15] MEDS: LACTATED RINGERS 1,000 ML 30 ML IV CONT ×3 (10:55→15:36)
[2025-02-15] MEDS: KETOROLAC 15 MG/ML VIAL (*BKC) IV PUSH (11:00)
--- NOTE | 2025-02-15 11:23 | P.PNAN_ITS ---
Anes - Initial Pre Proc Eval Procedure: Operation Date: 02/15/25 12:00 Proposed Procedures p Robotic Sacrocolpopexy, Urethral Sling - Calvin Bauer MD s Cystocele Repair - Calvin Bauer MD s Robotic Assisted Supracervical Hysterectomy with Bilateral Salpingo- oophorectomy - Josemanuel Azevedo MD Date/Time: 02/15/25 11:23 Surgeon: Calvin Bauer MD Pre Op Diagnosis: uterine prolapse, stress incont,cystocele Patient Data Age: 70 Gender: F Height: 1.6 m Weight: 80.9 kg Last Vital Signs Temp 98.8 F 02/15/25 10:10 Pulse 80 02/15/25 10:10 Resp 16 02/15/25 10:10 BP 135/59 L 02/15/25 10:10 Pulse Ox 100 02/15/25 10:10 O2 Del Method Room Air 02/15/25 10:10 Allergies Allergy/AdvReac Type Severity Reaction Status Date / Time diclofenac AdvReac Severe Abdominal Verified 02/15/25 11:06 pain caffeine AdvReac Unknown PANIC Verified 02/15/25 11:06 ATTACKS hydrocodone AdvReac Unknown Nausea Verified 02/15/25 11:06 Home Medications ?Medication ?Instructions ?Recorded ?Confirmed ?Type risedronate 150 mg tablet 150 mg PO MONTHLY 06/08/20 1 04/17/24 History Lactobacillus acidophilus 10 10,000 mmu cells PO BID 0 06/10/20 02/15/25 History billion cell capsule (Probiotic) ascorbic acid (vitamin C) 1,000 mg 1 g PO DAILY 02/15/25 History tablet (Vitamin C) calcium carbonate (Calcium 600) 600 mg PO BID 06/10/20 02/15/25 History cholecalciferol (vitamin D3) 125 125 mcg PO DAILY 05/1702/15/25 History mcg (5,000 unit) tablet coQ10 (ubiquinol) 100 mg capsule 100 mg PO DAILY 06/1002/15/25 History cranberry fruit 1,000 mg capsule 1,000 mg PO DAILY 02/15/25 History docusate sodium 100 mg capsule 100 mg PO DAILY 1 02/15/25 History (Stool Softener) garlic extract 500 mg capsule 500 mg PO BID 06/10/20 1 04/17/24 History multivitamin,se-zwzp-ttzhzxbq 1 tablet PO DAILY 02/15/25 History omega-3 fatty acids-vitamin E 1 cap PO DAILY 06/10/20 02/15/25 History 1,000 mg capsule alprazolam 0.25 mg tablet 0.25 mg PO BID PRN Anxiety 0 06/21/21 02/15/25 History lisinopril 20 mg tablet See Rx Instructions .Route 0 07/07/24 02/15/25 Rx .COMPLEX #90 tabs simvastatin 40 mg tablet 40 mg PO HS #90 tabs 07/07/ 5 02/15/25 Rx nitrofurantoin macrocrystal 50 mg See Rx Instructions .Route 07/09/24 02/15/25 Rx capsule .COMPLEX #90 caps tramadol 50 mg tablet 50 mg PO Q6H PRN Pain #100 t abs 02/02/25 02/05/25 Rx tramadol 50 mg tablet 50 mg PO Q6H PRN pain #20 ta bs 02/15/25 Rx Patient hx anesthesia problems: none Family hx anesthesia problems: none Results Review: All pre-operative results and documents have been reviewed as part of the pre- operative evaluation. [facility] Past Medical History Medical History Pure hypercholesterolemia, unspecified Gallstones Orthopedic aftercare Normal colonoscopy 12/01 Repeat 12/06 Chronic GERD Obesity Bunion, left foot (~2005) Bunion of left foot (~2002) Bunion, left foot (~1999) Bunion, left foot (~1995) Surgical History Surgical History History of vein stripping 2012 History of left knee replacement 07/03 History of carpal tunnel release (~2018) History of cholecystectomy (~2017) 2018 H/O: hysterectomy (~1994) Family History Family History Father Diabetes mellitus Heart disease Hypertension Mother Heart disease Sibling Hypertension Other Family history of cardiovascular disease Family history of kidney disease Family history of malignant neoplasm Social History Social History Smoking status: Never smoker Second hand tobacco smoke exposure: Yes Additional smoking assessment comments: DENIES ANY FORM OF TOBACCO USE Alcohol intake: never Substance use: never Substance use type: does not use Living arrangements: with family Additional living arrangements comments: Occupation/Education: retired Gender identity (if verbalized by the patient): Female Sexual Orientation (if Verbalized by the Patient): Straight or Heterosexual Spiritual care concerns: No Agree to blood products: Yes Anes - Eval Final PreProcedure Day of Procedure 02/15/25 11:23 Patient weight: obese Lungs: normal air movement Airway: Mallampati scale class II and special considerations (Upper edentulous. ) Neurological: alert and oriented Last oral intake: >/= 8 hours ASA classification: II Emergent: no Anesthetic plan: proceed Anesthesia type and monitoring: general ETT and standard monitoring Results Review: All pre-operative results and documents have been reviewed as part of the pre-operative evaluation. BMI 31, HTN, hyperlipidemia, pt active overall but recently limited by knee pain, no cp or sob w walking at [employer] over the weekend. Informed Consent: The patient's anesthetic plan and its attendant risks and benefits were discussed with the patient/family/POA. Questions were solicited and answers provided to the satisfaction of the patient/family/POA.
[2025-02-15] MEDS: ceFAZolin 2 GM in SODIUM CHLORIDE 0.9% IV 50 ML 100 ML IVPB (11:50)
[2025-02-15] MEDS: metroNIDAZOLE 500 MG/ISO 100ML 500 MG/100 ML BAG 100 MG IVPB ×2 (11:57→19:35)
--- NOTE | 2025-02-15 12:33 | P.OP_ITS ---
Procedure Note - Detailed Date of Procedure 02/15/25 Pre-op Diagnosis uterine prolapse, stress incont,cystocele Post-op Diagnosis Same Procedure Performed Robotic supracervical hysterectomy and bilateral salpingectomy Surgeon Josemanuel Azevedo MD Anesthesia General Indications Is a 70-year-old female with uterine prolapse stress urinary incontinence Findings Prolapsed uterus absent right ovary. Tubes status post tubal ligation Description of Procedure Patient was prepped draped in the normal sterile fashion placed in dorsal lithotomy position. Under excellent general endotracheal anesthesia weighted speculum placed in posterior fornix vagina. Anterior lip of the cervix grasped with a single-tooth tenaculum Leigh's cannula inserted the cervix attached to the single-tooth to be used later for uterine manipulation. Bladder was drained with an 16 Portuguese catheter and weighted speculum was removed. The gloves were changed. Dr. Bauer proceeded to dock the robot. Attention was turned to the cancer genetic counselor. The left round ligament was grasped, burned, cut. Anteriorly bladder flap formed by sharply dissecting the peritoneum and reflecting this caudally away from the cervix uterus to the opposite round ligament which was clamped, burned, cut. Next the left portion of fallopian tube was skeletonized away from ovary and the distal portion passed off the table with the proximal portion left and its uterine origin. The right fallopian tube was then sharply dissected away from the ovary and left attached to its uterine origin. Next the utero-ovarian ligament on the left was skeletonized to conserve that ovary as the patient and and indicated she. Was clamped, burned, cut and brought to level of previously cut round ligament. A similar fashion the utero-ovarian ligament was clamped, burned, cut on the right. The cardinal broad ligaments on the left were then serially skeletonized clamping burning hugging the cervix uterus until the large uterine vessels could be seen on the left these were individually clamped, burned, cut. Next cardinal broad ligaments on the right were serially skeletonized clamping burning cutting and hugging the cervix uterus until the large uterine vessels be seen on the right these were individually clamped, burned, cut. A supracervical incision made and the uterus tubes were placed in the Endo-Catch. Dr. Bauer took over from there blood loss to this point was 5cc there were no immediate complications Estimated Blood Loss 5 Drains No Packing No Pathology Yes Complications No immediate complications Condition Stable Disposition No change
--- NOTE | 2025-02-15 12:36 | PM.DS ---
DS: Admitting Diagnosis Discharge Date 01/16/2025 Admitting Diagnosis Urinary stress incontinence uterine prolapse DS: Discharge Diagnosis Discharge Diagnosis (1) Uterine prolapse: Code(s): N81.4 - Uterovaginal prolapse, unspecified Status: Acute (2) MODESTO (stress urinary incontinence, female): Code(s): N39.3 - Stress incontinence (female) (male) Status: Acute DS: Summary Hospital Course Reason for hospitalization: Patient was admitted for supracervical hysterectomy bilateral salpingectomy and sacral colpopexy as well as sling Hospital Course: Patient's hospital course unremarkable. She remained afebrile. She was up, voiding without difficulty, eating regular diet, ambulating, generally without complaints. Time Spent with Patient Time attestation: Total time spent providing and/or coordinating discharge services: Exam Narrative: The physical exam findings are as follows: Note:? - Cystocele beyond the introitus at approximately +3 to +4. - Minimal urethral mobility. - Atrophic vaginal tissue. - Loss of uterine support. - Wheatley at -1. Discharge Plan Discharge Patient Disposition: Home Discharge Instructions: No lifting >20lb, exercise for 6 weeks No tub bath or pool for 2 weeks no intercourse 6 weeks Patient Language: Turkmen Stand Alone Forms: General Discharge Instructions Follow-up/Referrals: Calvin Bauer MD [Physician, Urology] Referral Note: 6 weeks Discharge Medications: New tramadol 50 mg tablet 50 mg PO Q6H PRN (Reason: pain) Qty: 20 0RF Continued alprazolam 0.25 mg tablet 0.25 mg PO BID PRN (Reason: Anxiety) risedronate 150 mg tablet 150 mg PO MONTHLY Patient Comments: TAKES ON THE 1ST OF THE MONTH Rx Instructions: administer at least 30 minutes before the first food or drink of the day other than water. docusate sodium [Stool Softener] 100 mg Capsule 100 mg PO DAILY Probiotic 10 billion cell Capsule 10,000 mmu cells PO BID garlic extract 500 mg Capsule 500 mg PO BID ascorbic acid (vitamin C) [Vitamin C] 1,000 mg Tablet 1 g PO DAILY calcium carbonate [Calcium 600] 600 mg calcium (1,500 mg) Tablet 600 mg PO BID cranberry fruit 1,000 mg Capsule 1,000 mg PO DAILY multivitamin,ku-orec-esmvemnh Tablet 1 tablet PO DAILY omega-3 fatty acids-vitamin E 1,000 mg Capsule 1 cap PO DAILY coQ10 (ubiquinol) 100 mg Capsule 100 mg PO DAILY cholecalciferol (vitamin D3) 125 mcg (5,000 unit) Tablet 125 mcg PO DAILY lisinopril 20 mg tablet See Rx Instructions .ROUTE .COMPLEX Qty: 90 2RF Dose Instruction: TAKE 1 TABLET BY MOUTH EVERY DAY Rx Instructions: TAKE 1 TABLET BY MOUTH EVERY DAY simvastatin 40 mg tablet 40 mg PO HS Qty: 90 2RF nitrofurantoin macrocrystal 50 mg capsule See Rx Instructions .ROUTE .COMPLEX Qty: 90 1RF Dose Instruction: 50 MG ORALLY DAILY NEEDED FOR UTIS MUST ADMINISTER WITH A MEAL/FOOD Rx Instructions: 50 MG ORALLY DAILY NEEDED FOR UTIS MUST ADMINISTER WITH A MEAL/FOOD tramadol 50 mg tablet 50 mg PO Q6H PRN (Reason: Pain) Qty: 100 3RF
--- NOTE | 2025-02-15 14:00 | S_PTH ---
PATIENT: Molly Calvin LOC: [facility] U#:[id number] AGE/SX: 70/F ROOM: RE02/15/[address]: Calvin Bauer MD : [id number] BED: DIS: 02/16/2025 SPEC #: [id number] RECD: 02/16/25 07:32 STATUS: BARBARA REQ #: [id number] SHANNAN: 02/15/25 14:[address]: Josemanuel Gay DEPT: [facility] Surgical RECD BY: Gianni Hensley ENTERED: 02/16/25 07:32 SP TYPE: Surgical OTHR DR: MD Pradeep Vargas MD Tissues: A - Uterus Procedures: Hematoxylin and Eosin Stain Gross and Microscopic Level 5
--- NOTE | 2025-02-15 14:03 | SUR.OPER ---
uterus and bilateral fallopian tubes 47 grams
--- NOTE | 2025-02-15 14:48 | W.PM.PROC2 ---
Procedure Note - Detailed Date of Procedure 02/15/25 Pre-op Diagnosis uterine prolapse, stress incont Post-op Diagnosis Same Procedure Performed Robotic assisted laparoscopic sacral colpopexy Urethral sling Cystoscopy Surgeon Calvin Bauer MD Anesthesia General Indications A woman with uterine prolapse as well as stress incontinence. She desires surgical correction. She is here for the above. She understands risks of bleeding, infection, diskitis, damage to surrounding organs, bowel injury, bowel obstruction, mesh related complications including exposure and extrusion, postoperative voiding dysfunction including incontinence and retention, need for ancillary procedures, dyspareunia, recurrence of prolapse, and other perioperative intraoperative postoperative complications. She agrees to proceed. Findings See below Description of Procedure She was correctly identified. Informed consent obtained. She from the operating room. She was given general anesthesia. She was given appropriate perioperative antibiotics. She was placed a low lithotomy position. Pressure points were padded. A time-out performed. I marked out the skin 3 fingerbreadths cephalad to the umbilicus. I anesthetized the skin. I incised the skin. I dissected down to the fascia. I grasped the fascia with Shobha clamps. I entered the fascia sharply in a Venegas type technique. I placed sutures for later fascial closure. I placed a midline trocar. I examined the abdomen. There is no sign of any injury. Under direct vision I placed 2 additional trocars in the right upper quadrant and 2 additional trocars the left upper quadrant. She was placed in steep Trendelenburg. The robot was docked. Her gear tooth lapping machine operator completed their portion of the procedure. Please see that operative report for details. I then sat at the console. The Sizer in the vagina created plane on the anterior and posterior vaginal wall. I took great care not to injure the vagina, bladder, or rectum. I introduced the mesh into the abdomen. I sewed the anterior leaflet of mesh on the anterior vaginal wall. I sewed the posterior leaflet of mesh on the posterior vaginal wall. This was done with several sutures of 2 0 Glasgow-Zion. I reflected the colon laterally. Romain Retraction was made difficult by the redundancy of her rectosigmoid. I was able to do it safely and effectively. I opened the posterior peritoneum over the sacral promontory. I carried this into the cul-de-sac. I freed up the edges for later retroperitonealization. I located the anterior longitudinal ligament the sacrum. I cleaned off all fatty tissues. The ligament was very thick and spongy. There were several veins in the area which had to be controlled with cautery. I also placed 2 pieces of Surgicel. There was no further bleeding. I was happy with hemostasis. I then tensioned my mesh appropriately. I did a vaginal exam the bedside. I assured prolapse reduction without undue tension. I then sewed the proximal leaflet of mesh onto the anterior longitudinal ligament of the sacrum with 2 sutures of 2 0 Glasgow-Zion. I then used a 2 0 Monocryl to completely and meticulously retroperitonealized all mesh. I allowed the colon to go back to its normal anatomic location. There is no sign of any impingement. The specimen was then removed. All ports removed. Fascia was tied down. I placed additional sutures to fully close the fascia appear. Skin was closed with Monocryl and surgical glue. She was repositioned and prepped for urethral sling. She had some redundant proximal cystocele which I opted to not perform a plication repair. It was mostly redundant vaginal tissue and not prolapsing towards the introitus. She also had several fleshy polyps on the cervix. I discussed this with her gear tooth lapping machine operator before she was awakened and he noted this on the preop exam as well. I marked out the inner thigh incisions. I anesthetized the skin and made the incisions. I then anesthetized the anterior vaginal wall at the mid urethra. I made a 1 cm incision. I dissected out laterally taking great care not to injure the refilled vaginal wall. I passed the helical trocars. I did this 1st on the left and then on the right. This was done from the thigh incision towards the vaginal incision. Sling was connected to the trocars and brought out the thigh incision. I tensioned the sling appropriately. I cut and the plastic sheaths. I closed the incision with 2 0 Vicryl. I then performed cystoscopy. There was no tumors or surgical artifact. Both ureters were seen to excrete clear yellow urine. There is no surgical artifact in the bladder or urethra. I cut the excess sling material. Close incision with glue. She was awakened and transferred to PACU in stable condition. Implants Sacral colpopexy mesh Urethral sling Estimated Blood Loss 30 Drains No Packing No Pathology Other (Per gynecology) Complications No immediate complications Condition Stable Disposition PACU
[2025-02-15] MEDS: fentaNYL CITRATE INJ (*CRX) 100 MCG/2 ML VIAL 25 MCG IV PUSH ×4 (15:26→15:40)
--- NOTE | 2025-02-15 16:15 | PC.NURSE ---
This patient, Molly Calvin, was received from PACU on 02/15/25 at 1615. Patient/family oriented to unit policies and routines.
[2025-02-15] MEDS: traMADol HCL (*CRX) 50 MG TABLET PO ×2 (16:35→23:15)
[2025-02-15] MEDS: KCL 20 MEQ/D5/0.45% SOD CHL 1,000 ML 100 ML IV CONT (16:36)
[2025-02-15] MEDS: ceFAZolin 1 GM in SODIUM CHLORIDE 0.9% IV 50 ML 100 ML IVPB (19:00)
[2025-02-15] MEDS: ACETAMINOPHEN 325 MG TABLET 650 MG PO (19:05)
[2025-02-15] MEDS: SIMVASTATIN 20 MG TABLET 40 MG PO (21:15)
[2025-02-16] MEDS: ceFAZolin 1 GM in SODIUM CHLORIDE 0.9% IV 50 ML 100 ML IVPB (02:58)
[2025-02-16 03:02] VITALS: BP 132/56; PULSE 95; RESP 20; TEMP 36.8; O2SAT 97
[2025-02-16] MEDS: metroNIDAZOLE 500 MG/ISO 100ML 500 MG/100 ML BAG 100 MG IVPB (03:35)
--- NOTE | 2025-02-16 06:42 | P.PNOB_ITS ---
BALLPOINT PEN CARTRIDGE TESTER - A/P Assessment and plan (1) MODESTO (stress urinary incontinence, female): Code(s): N39.3 - Stress incontinence (female) (male) Status: Acute (2) Uterine prolapse: Code(s): N81.4 - Uterovaginal prolapse, unspecified Status: Acute Plan home Postoperative Procedures: Procedures Operation Date: 02/15/25 12:00 Actual Procedure Side Surgeon p Robotic Sacrocolpopexy, Urethral Sling Not Applicable Calvin Bauer MD s Robotic Assisted Supracervical Hysterectomy with Bilateral Salpingectomy Bilateral Josemanuel Azevedo MD Time Spent With Patient Time: Total time spent is greater than 50% in coordination of care (as documented) at patient's floor/unit and/or counseling patient: Time with patient: 15 - 25 minutes BALLPOINT P[employer] CARTRIDGE TESTER- PN:Subj Post-Op Subjective Date/time seen: 02/16/25 06:42 Subjective: patient reports feeling better, patient has no complaints, patient desires discharge, pain is well controlled and patient is tolerating oral intake Review of Systems Review of Systems: All systems reviewed & are unremarkable except as noted in HPI and below Exam Const: General: cooperative, healthy appearing and comfortable Nutritional Appearance: average body habitus Orientation/consciousness: oriented to person, oriented to place and oriented to time Resp: Effort & Inspection: normal respiratory effort Cardio: Rate: regular rate Rhythm: regular rhythm Heart sounds: S1 normal heart sound present and S2 normal heart sound present GI: Inspection: normal to inspection and incision (wounds cdi) BALLPOINT P[employer] CARTRIDGE TESTER - PN: Obj Data Vital Signs Vital Signs: Vital Signs - 24 hr 02/15/25 10:10 02/15/25 14:44 02/15/25 15:00 Temperature 98.8 F 96.9 F L Pulse Rate 80 57 L 56 L Respiratory Rate 16 14 14 Blood Pressure 135/59 L 107/52 L 125/64 Pulse Oximetry 100 100 100 Oxygen Delivery Room Air Simple Face Mask Simple Face Mask Oxygen Flow Rate 8 8 02/15/25 15:15 02/15/25 15:30 02/15/25 15:45 Temperature Pulse Rate 60 63 60 Respiratory Rate 14 12 12 Blood Pressure 139/68 136/64 143/88 H Pulse Oximetry 100 95 96 Oxygen Delivery Simple Face Mask Room Air Room Air Oxygen Flow Rate 8 02/15/25 15:58 02/15/25 16:15 02/15/25 17:30 Temperature 96.3 F L 97.4 F L Pulse Rate 70 55 L Respiratory Rate 12 14 Blood Pressure 142/62 H 134/65 Pulse Oximetry 94 95 Oxygen Delivery Room Air Oxygen Flow Rate 02/15/25 19:29 02/15/25 19:29 02/15/25 23:18 Temperature 97.6 F 98.8 F Pulse Rate 68 97 Respiratory Rate 18 18 Blood Pressure 144/66 H 134/52 L Pulse Oximetry 97 96 Oxygen Delivery Room Air Oxygen Flow Rate 02/15/25 23:18 02/16/25 03:02 02/16/25 03:02 Temperature 98.2 F Pulse Rate 95 Respiratory Rate 20 Blood Pressure 132/56 L Pulse Oximetry 97 Oxygen Delivery Room Air Room Air Oxygen Flow Rate Intake/Output Intake/Output: Intake & Output 02/13/25 02/14/25 02/15/25 02/16/25 23:59 22:59 23:59 23:59 Intake Total 900 Output Total 2160 600 Balance -1260 -600 Meds/Results Medications: Active Medications Generic Name Dose Route Start Last Admin Trade Name Freq PRN Reason Stop Dose Admin Acetaminophen 650 mg 02/15/25 16:00 02/15/25 19:05 Acetaminophen 325 Mg Tablet PO 650 mg Q4H PRN Administration Mild Pain (1-3) or Fever Alprazolam 0.25 mg 02/15/25 16:00 Alprazolam (*Crx) 0.25 Mg Tablet PO BID PRN Anxiety Cephalexin HCl 500 mg 02/16/25 09:00 Cephalexin 500 Mg Capsule PO QID TRAE Diphenhydramine HCl 25 mg 02/15/25 16:00 Diphenhydramine Hcl Inj 50 Mg/Ml Vial IV PUSH Q6H PRN Itching Docusate Sodium 100 mg 02/16/25 09:00 Docusate Sodium 100 Mg Capsule PO DAILY TRAE Enoxaparin Sodium 30 mg 02/16/25 09:00 Enoxaparin 30 Mg/0.3 Ml Syringe SUB-Q DAILY TRAE Potassium Chloride/Dextrose/Sod Cl 1,000 mls @ 100 mls/hr 02/15/25 16:00 02/16/25 03:06 Kcl 20 Meq/D5/0.45% Sod Chl IV CONT Not Given .Q10H TRAE Metronidazole 500 mg in 100 mls @ 100 mls/hr 02/15/25 20:00 02/16/25 03:35 Flagyl 500 Mg/Iso Soln 100 Ml IVPB 100 mls/hr Q8H TRAE Administration Lisinopril 20 mg 02/16/25 09:00 Lisinopril 20 Mg Tablet BY MOUTH DAILY TRAE Ondansetron HCl 4 mg 02/15/25 16:00 Ondansetron Inj 4 Mg/2 Ml Vial IV PUSH Q6H PRN Nausea And Vomiting Simvastatin 40 mg 02/15/25 21:00 02/15/25 21:15 Simvastatin 20 Mg Tablet PO 40 mg HS TRAE Administration Tramadol HCl 50 mg 02/15/25 16:00 02/15/25 23:15 Tramadol Hcl (*Crx) 50 Mg Tablet PO 50 mg Q6H PRN Administration Pain Rated 4-6 Zolpidem Tartrate 5 mg 02/15/25 16:00 Zolpidem Tartrate (*Crx) 5 Mg Tablet PO HS PRN Insomnia
[2025-02-16] MEDS: traMADol HCL (*CRX) 50 MG TABLET PO (07:53)
[2025-02-16] MEDS: ENOXAPARIN 30 MG/0.3 ML SYRINGE SUB-Q (07:53)
[2025-02-16] MEDS: CEPHALEXIN 500 MG CAPSULE PO (07:54)
[2025-02-16] MEDS: DOCUSATE SODIUM 100 MG CAPSULE PO (07:54)
[2025-02-16 08:05] VITALS: BP 125/50; PULSE 88; RESP 16; TEMP 37.4; O2SAT 96
== END 2025-02-16 10:47 | disposition home or self-care (01) ==
LOC: ANHSURGERY 10:32 → ANHOB2 16:04
PROVIDERS: Obstetrics & Gynecology; PCP Family Medicine Adolescent Medicine; Visit Provider Urology
PROC: (CPT 57425; principal; 2025-02-15 12:00)
PROC: 0UT94ZZ Resection of Uterus, Percutaneous Endoscopic Approach (ICD-10-PCS; CPT 57425; 2025-02-15 12:00)
DX: N39.3 Stress incontinence (female) (male) (principal); N81.4 Uterovaginal prolapse, unspecified; D25.1 Intramural leiomyoma of uterus; N84.1 Polyp of cervix uteri; I10 Essential (primary) hypertension; E78.00 Pure hypercholesterolemia, unspecified; K21.9 Gastro-esophageal reflux disease without esophagitis; E66.9 Obesity, unspecified; Z68.31 Body mass index [BMI] 31.0-31.9, adult; Z79.891 Long term (current) use of opiate analgesic; Z98.890 Other specified postprocedural states; Z90.49 Acquired absence of other specified parts of digestive tract; Z98.51 Tubal ligation status; Z80.9 Family history of malignant neoplasm, unspecified; Z82.49 Family history of ischemic heart disease and other diseases of the circulatory system
CPT/HCPCS: 58542; 57425; S2900 ×2; 88307; 99199; J0690; A9270; C1771; C1781; J1650; J1836; J1885; J2003; J2250; J2270; J2405; J2704; J3010; J3480; J7120